=== PATIENT | male | born 1975 | race Caucasian/White ===

== ENCOUNTER 2018-12-23 07:54 | Emergency (ER) | payer BC ==
--- OUTSIDE RECORDS SUMMARY | 2018-12-23 08:00 | XMS REPORT ---
:1975 Author Organization [facility] Address [address] [place] [address] Dr. Brown [address] [place] [address] Care Team Providers Name Role Phone Unavailable Unavailable Unavailable Problems This patient has no known problems. Allergies, Adverse Reactions, Alerts This patient has no known allergies or adverse reactions. Medications This patient has no known medications.
--- OUTSIDE RECORDS SUMMARY | 2018-12-23 08:01 | XMS REPORT | Summary of Care ---
:1975 Author Organization [facility] - [facility] Address [address] [place] [address] Care Team Providers Name Role Phone Pcp, Patient Does Not Have A Primary Care Provider Encounter Details Date Type Department Care Team Description 12/22/2018 Orders Only [facility] Doctor Unassigned, No [address] [facility] [place] [address] [address] [place] [address] Allergies No Known Allergiesdocumented as of this encounter (statuses as of 12/22/2018) Medications Medication Sig Dispensed Refills Start Date End Date Status ketorolac 10 mg Take 1 tablet by 20 tablet 0 12/02/2018 Active tabletIndications: mouth every 6 Acute left flank pain (six) hours as needed for Pain (scale 4-6). documented as of this encounter (statuses as of 12/22/2018) Active Problems No known active problemsdocumented as of this encounter (statuses as of 2018) Social History Tobacco Use Types Packs/Day Years Used Date Never Assessed Sex Assigned at Date Recorded Not on file Job Start Date Occupation Industry Not on file Not on file Not on file Travel History Travel Start Travel End No recent travel history available. documented as of this encounter Last Filed Vital Signs Not on filedocumented in this encounter Plan of Treatment Health Maintenance Due Date Last Done Comments DTaP,Tdap,and Td Vaccines (1 - 1996 Tdap) INFLUENZA VACCINE (#1) 2018 PNEUMOCOCCAL 0-64 YEARS COMBINED Aged Out No longer eligible based on SERIES patient's age to complete this topic documented as of this encounter Procedures Procedure Name Priority Date/Time Associated Diagnosis Comments CONSENT/REFUSAL FOR Routine 12/22/2018 2:52 PM CDT DIAGNOSIS AND TREATMENT documented in this encounter Results Not on filedocumented in this encounter Insurance Payer Benefit Plan Subscriber ID Effective Dates Phone Address Type / Group [employer] [place] [id number] 2018-Norma [phone] [address] PPO/POS [place] - OUT OF t 7 [id number] [place] [address] documented as of this encounter
--- OUTSIDE RECORDS SUMMARY | 2018-12-23 08:01 | XMS REPORT | Summary of Care ---
:1975 Author Organization [facility] - [facility] Address [address] [place] [address] Care Team Providers Name Role Phone Pcp, Patient Does Not Have A Primary Care Provider Reason for Visit Reason Comments Back Pain Auth/Cert Status Reason Specialty Diagnoses / Referred By Referred To Procedures Contact Contact Emergency Medicine Diagnoses BACK PAIN [facility] [address] [place] [address] [place] [address] Encounter Details Date Type Department Care Team Description 12/22/2018 Emergency [facility] Marilynn Jang PAC Acute left-sided thoracic back pain (Primary Dx); Department [address] [address] DR Amanda zapata [address] [place] [address] [place] [address] [place], [place] [id number] Allergies No Known Allergiesdocumented as of this encounter (statuses as of 12/22/2018) Medications Medication Sig Dispensed Refills Start Date End Date Status ketorolac 10 mg Take 1 tablet 20 tablet 0 12/02/2018 Active tabletIndications: Acute by mouth every left flank pain 6 (six) hours as needed for Pain (scale 4-6). cyclobenzaprine 10 mg Take 1 tablet 20 tablet 0 12/22/2018 Active tabletIndications: Acute by mouth 3 left-sided thoracic back (three) times pain daily. acetaminophen-codeine Take 1 tablet 12 tablet 0 12/22/2018 Active 300-30 mg by mouth every tabletIndications: Acute 4 (four) hours left-sided thoracic back as needed for pain Pain (scale 4-6). documented as of this [...] of this encounter Last Filed Vital Signs Vital Sign Reading Time Taken Comments Blood Pressure 147/97 12/22/2018 3:10 PM CDT Pulse 98 12/22/2018 3:10 PM CDT Temperature 37.2 C (99 F) 12/22/2018 3:10 PM CDT Respiratory Rate 18 12/22/2018 3:10 PM CDT Oxygen Saturation 97% 12/22/2018 3:10 PM CDT Inhaled Oxygen Concentration - - Weight 99.8 kg (220 lb) 12/22/2018 3:10 PM CDT Height - - Body Mass Index 35.51 12/02/2018 10:23 PM CDT documented in this encounter Discharge Instructions Marilynn Shi, PAC - 12/22/2018Avoid strenuous activities and follow up with PCP for further treatment. Return to the ER if pain worsens and is not controlled with meds. or if you develop numbness to your groin, difficulty picking your foot up when walking or have difficulty controlling your bowels or bladder function. Apply heat to your back, and do stretching exercises to prevent stiffness to your back muscles. Follow up with your PCP or an orthopedist if you feel like you are not improving with the treatment plan and/or medications recommended. Follow up with a bench press operator for further evaluation of your elevated creatinine level. AttachmentsThe following attachments cannot be sent through Care Everywhere.Back Pain, Relieving (Greek)documented in this encounter Plan of Treatment Health Maintenance Due Date Last Done Comments DTaP,Tdap,and Td Vaccines ( - 1996 Tdap) INFLUENZA VACCINE (#1) 2018 PNEUMOCOCCAL 0-64 YEARS COMBINED Aged Out No longer eligible based on SERIES patient's age to complete this topic documented as of this encounter Procedures Procedure Name Priority Date/Time Associated Comments Diagnosis URINALYSIS STAT 12/22/2018 6:18 Acute left-sided Results for this PM CDT thoracic back pain procedure are in the results section. CBC WITH DIFFERENTIAL STAT 12/22/2018 6:16 Acute left-sided Results for this PM CDT thoracic back pain procedure are in the results section. CBC WITH DIFF STAT 12/22/2018 6:16 Acute left-sided Results for this PM CDT thoracic back pain procedure are in the results section. COMP. METABOLIC PANEL STAT 12/22/2018 6:16 Acute left-sided Results for this (96857) PM CDT thoracic back pain procedure are in the results section. NOTICE OF PRIVACY Routine 12/22/2018 2:52 PRACTICES PM CDT documented in this encounter Results URINALYSIS (12/22/2018 6:18 PM CDT) APPEARANCE Clear Clear [facility] COLOR Yellow Yellow [facility] PH 5.0 4.8 - 8.0 [facility] SP GRAVITY 1.017 1.003 - 1.030 [facility] GLU U QUAL Normal Normal [facility] BLOOD 2+ (A) Negative [facility] KETONES Negative Negative [facility] PROTEIN Negative Negative [facility] UROBILIN Normal Normal [facility] BILIRUBIN Negative Negative [facility] NITRITE Negative Negative [facility] LEUK DIETER Negative Negative [facility] RBC/HPF 5 (H) 0 - 3 HPF [facility] WBC/HPF 2 0 - 5 HPF [facility] BACTERIA Negative Negative [facility] MUCOUS Slight (A) Negative LPF [facility] SQ EPITH <1 HPF [facility] Specimen Urine - URINE, CLEAN CATCH Performing Organization Address City/State/Zipcode Phone Number [facility] CLIA: [id number], [address] [place] [address] CBC WITH DIFFERENTIAL (12/22/2018 6:16 PM CDT) WBC 8.41 4.20 - 10.70 [facility] 10*3/L [facility] RBC 4.72 4.26 - 5.52 [facility] 10*6/L [facility] HGB 13.6 12.2 - 16.4 g/dL [facility] HCT 42.1 38.4 - 49.3 % [facility] MCV 89.2 81.7 - 95.6 fL [facility] MCH 28.8 26.1 - 32.7 pg [facility] MCHC 32.3 31.2 - 35.0 g/dL [facility] RDW-SD 41.4 38.5 - 51.6 fL [facility] RDW-CV 12.6 12.1 - 15.4 % [facility] PLT 247 150 - 328 [facility] 10*3/L [facility] MPV 10.6 9.8 - 13.0 fL [facility] NRBC/100 WBC 0.0 0.0 - 10.0 /100 [facility] WBCs [facility] NRBC x10^3 <0.01 10*3/L [facility] GRAN MAT (NEUT) % 78.3 % [facility] IMM GRAN % 0.40 % [facility] LYMPH % 14.5 % [facility] MONO % 5.0 % [facility] EOS % 1.3 % [facility] BASO % 0.5 % [facility] GRAN MAT x10^3(ANC) 6.59 1.99 - 6.95 [facility] 10*3/uL [facility] IMM GRAN x10^3 0.03 0.00 - 0.06 [facility] 10*3/uL HOSPITAL LABORATORY LYMPH x10^3 1.22 1.09 - 3.23 [facility] 10*3/uL HOSPITAL LABORATORY MONO x10^3 0.42 0.36 - 1.02 [facility] 10*3/uL HOSPITAL LABORATORY EOS x10^3 0.11 0.06 - 0.53 [facility] 10*3/uL HOSPITAL LAB[facility]ATORY BASO x10^3 0.04 0.01 - 0.09 [facility] 10*3/uL [facility] Specimen Blood - VENOUS Performing Organization Address City/State/Zipcode Phone Number [facility] CLIA: [id number], [address] [place] [address] COMP. METABOLIC PANEL ([id number]) (12/22/2018 6:16 PM CDT) NA 142 135 - 145 [facility] mmol/L [facility] K 4.0 3.5 - 5.0 [facility] mmol/L [facility] CL 103 98 - 108 mmol/L [facility] CO2 TOTAL 27 23 - 31 mmol/L [facility] AGAP 12 2 - 16 [facility] BUN 14 7 - 23 mg/dL [facility] GLUCOSE 153 (H) 70 - 110 mg/dL [facility] CREATININE 1.33 (H) 0.60 - 1.25 [facility] mg/dL [facility] TOTAL BILI 0.5 0.1 - 1.1 mg/dL [facility] CALCIUM 9.3 8.6 - 10.6 [facility] mg/dL [facility] T PROTEIN 8.1 6.3 - 8.2 g/dL [facility] ALBUMIN 4.5 3.5 - 5.0 g/dL [facility] ALK PHOS 84 34 - 122 U/L [facility] ALT(SGPT) 21 9 - 51 U/L [facility] AST(SGOT) 22 13 - 40 U/L [facility] eGFR Calculation 59.3 mL/min/1.73m2 [facility] (Non-[facility] LABORATORY Portuguese) eGFR Calculation 71.8 mL/min/1.73m2 [facility] () [facility] Specimen Blood - VENOUS Narrative Performed At Association of Glomerular Filtration Rate (GFR) [facility] and Staging of Kidney Disease* + + +- + | GFR (mL/min/1.73 m2)| With Kidney Damage|Without Kidney Damage + + +- + |>90| Stage one| Normal + + +- + |60-89|S tage two| Decreased GFR + + +- + |30-59|S tage three| Stage three + + +- + |15-29|S tage four | Stage four + + +- + |<15 (or dialysis)|Stage five | Stage five + + +- + *Each stage assumes the associated GFR level has been in effect for at least three months.Stages 1 to 5, with or without kidney disease, indicate chronic kidney disease. Notes: Determination of stages one and two (with eGFR >59mL/min/1.73 m2) requires estimation of kidney damage for at least three months as defined by structural or functional abnormalities of the kidney, manifested by either: Pathological abnormalities or Markers of kidney damage (including abnormalities in the composition of the blood or urine or abnormalities in imaging tests). Performing Organization Address City/State/Zipcode Phone Number [facility] CLIA: [id number], [address] [place] [address] documented in this encounter Visit Diagnoses Diagnosis Acute left-sided thoracic back pain - Primary Creatinine elevation Other nonspecific findings on examination of blood documented in this encounter Administered Medications Medication Order MAR Action Action Date Dose Rate Site cyclobenzaprine (FLEXERIL) tablet Given 12/22/2018 7:34 PM CDT 10 mg 10 mg 10 mg, Oral, ONCE, 1 dose, Sat12/22/18 at 2044, Routine HYDROcodone-acetaminophen (NORCO 5) 5-325 Given 12/22/2018 7:33 PM CDT 1 tablet mg tablet 1 tablet 1 tablet, Oral, ONCE, 1 dose, Sat12/22/18 at 2044, SRIRAM documented in this encounter Insurance Payer Benefit Plan Subscriber ID Effective Dates Phone Address Type / Group [facility] [id number] 2018-Norma [phone] [address] PPO/POS [place] - OUT OF t 7 [id number] [place] [address] documented as of this encounter"
--- OUTSIDE RECORDS SUMMARY | 2018-12-23 08:01 | XMS REPORT | Summary of Care ---
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 [address] [address] MRI/CAT Scan (STAT) Status Reason Specialty Diagnoses / Referred By Referred To Procedures Contact Contact New Request Diagnostic Diagnoses Acute left flank pain Shaneka Bradley Radiology Procedures CT ABDOMEN PELVIS WO CONTRAST G, WELDING 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 [address] [address] Reason for Visit Reason Comments Back Pain Auth/Cert Status Reason Specialty Diagnoses / Referred By Referred To Procedures Contact Contact Emergency Medicine Diagnoses BACK PAIN [facility] [address] [place] [address] Encounter Details Date Type Department Care Team Description 12/02/2018 - Emergency [facility]Emergency Cornelio Lopez MD [address] [address] Acute left flank pain (Primary Dx); 12/03/2018 Department Shaneka Bradley G, WELDING 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 [address] [address] [phone] Flank pain 132 [facility] [place] [address] Allergies No Known Allergiesdocumented as of this encounter (statuses as of 12/03/2018) Medications Medication Sig Dispensed Refills Start Date End Date Status ketorolac 10 mg Take 1 tablet by 20 tablet 0 12/02/2018 Active tabletIndications: mouth every 6 Acute left flank pain (six) hours as needed for Pain (scale 4-6). methocarbamol 750 mg Take 2 tablets 24 tablet 0 12/02/2018 12/05/2018 Active tabletIndications: by mouth 4 Acute left flank pain (four) times daily for 3 days. documented as of this encounter (statuses as of 12/03/2018) Active Problems No known active problemsdocumented as [...] Sign Reading Time Taken Comments Blood Pressure 142/88 12/03/2018 1:30 AM CDT Pulse 92 12/03/2018 1:30 AM CDT Temperature 36.8 C (98.2 F) 12/02/2018 10:23 PM CDT Respiratory Rate 18 12/03/2018 1:30 AM CDT Oxygen Saturation 99% 12/03/2018 1:30 AM CDT Inhaled Oxygen Concentration - - Weight 99.8 kg (220 lb) 12/02/2018 10:23 PM CDT Height 167.6 cm (5' 6") 12/02/2018 10:23 PM CDT Body Mass Index 35.51 12/02/2018 10:23 PM CDT documented in this encounter Discharge Instructions Shaneka Vines NP - 12/02/2018Diagnosis: Flank pain unable to determine cause Prescriptions for Toradol and Robaxin Follow up in the clinic, return if worse documented in this encounter Plan of Treatment Health Maintenance Due Date Last Done Comments DTaP,Tdap,and Td Vaccines (1 - 1996 Tdap) INFLUENZA VACCINE (#1) 2018 PNEUMOCOCCAL 0-64 YEARS COMBINED Aged Out No longer eligible based on SERIES patient's age to complete this topic documented as of this encounter Procedures Procedure Name Priority Date/Time Associated Comments Diagnosis CT ABDOMEN PELVIS WO STAT 12/03/2018 12:48 AM Acute left flank Results for this CONTRAST CDT pain procedure are in the results section. URINALYSIS STAT 12/02/2018 10:32 PM Flank pain Results for this CDT procedure are in the results section. documented in this encounter Results CT ABDOMEN PELVIS WO CONTRAST (12/03/2018 12:48 AM CDT) Specimen Impressions Performed At PACS/VR/DOSE No acute inflammatory process in the abdomen or pelvis. No hydronephrosis No urinary tract stones Normal appendix RL: [id number] ABDOMEN AND PELVIS WITHOUT IV CONTRAST PACS/VR/DOSE ORDERING PHYSICIAN: SHANEKA BRADLEY HISTORY: Acute abdominal pain, flank pain TECHNIQUE: Multiple axial CT images of the abdomen and pelvis were obtained without IV or PO contrast. CT scan performed according to ALARA (As low as reasonably achievable) principles. COMPARISON: None available. FINDINGS: Lower lungs are clear. There are no effusions. Heart size normal. Liver, gallbladder, pancreas, spleen, adrenals, and kidneys are unremarkable. No urinary tract stones. No hydronephrosis. No free fluid. Appendix normal. Bones are normal. Procedure Note [facility], Radiant Results Inft User - 12/03/2018 12:[address] ABDOMEN AND PELVIS WITHOUT IV CONTRAST ORDERING PHYSICIAN: SHANEKA BRADLEY HISTORY: Acute abdominal pain, flank pain TECHNIQUE: Multiple axial CT images of the abdomen and pelvis were obtained without IV or PO contrast. CT scan performed according to ALARA (As low as reasonably achievable) principles. COMPARISON: None available. FINDINGS: Lower lungs are clear. There are no effusions. Heart size normal. Liver, gallbladder, pancreas, spleen, adrenals, and kidneys are unremarkable. No urinary tract stones. No hydronephrosis. No free fluid. Appendix normal. Bones are normal. IMPRESSION No acute inflammatory process in the abdomen or pelvis. No hydronephrosis No urinary tract stones Normal appendix RL: [id number] Performing Organization Address City/State/Zipcode Phone Number [facility] URINALYSIS (12/02/2018 10:32 PM CDT) APPEARANCE Clear Clear [facility] COLOR Yellow Yellow [facility] PH 6.0 4.8 - 8.0 [facility] SP GRAVITY 1.025 1.003 - 1.030 [facility] GLU U QUAL Negative Negative [facility] BLOOD Moderate (A) Negative [facility] KETONES Negative Negative [facility] PROTEIN Negative Negative [facility] UROBILIN 0.2 mg/dL 0-1.0 mg/dL [facility] BILIRUBIN Negative Negative [facility] NITRITE Negative Negative [facility] LEUK DIETER Negative Negative [facility] RBC/HPF 3 0 - 3 HPF [facility] WBC/HPF 1 0 - 5 HPF [facility] BACTERIA Few (A) Negative [facility] MUCOUS Slight (A) Negative LPF [facility] Specimen Urine - URINE, CLEAN CATCH Performing Organization Address City/State/[facility] Cent[facility] Phone Number [facility] CLIA: [id number], [address] [place] [address] documented in this encounter Visit Diagnoses Diagnosis Acute left flank pain - Primary Abdominal pain, unspecified site Flank pain Abdominal pain, unspecified site documented in this encounter Administered Medications Medication Order MAR Action Action Date Dose Rate Site HYDROcodone-acetaminophen Given 12/03/2018 1:19 AM CDT 2 tablets (NORCO 5) 5-325 mg tablet 2 tablet 2 tablet, Oral, ONCE, 1 dose, Sat12/03/18 at 0100, SRIRAM ketorolac (TORADOL) injection Given 12/03/2018 12:49 AM CDT 30 mg Right Deltoid-IM 30 mg 30 mg, Intramuscular, ONCE, 1 dose, Sat12/03/18 at 0045, SRIRAM, anthropology faculty member approving Restricted medication: SHANEKA BRADLEY methocarbamol (ROBAXIN) tablet 1,500 mg Given 12/03/2018 12:50 AM CDT 1,500 mg 1,500 mg, Oral, ONCE, 1 dose, Sat12/03/18 at 0045, Routine documented in this encounter Insurance Payer Benefit Plan Subscriber ID Effective Dates Phone Address Type / Group [facility] [id number] 2018-Norma [phone] [address] PPO/POS [place] - OUT OF t 7 [id number] [place] [address] documented as of this encounter
[2018-12-23] MEDS ORDERED: DIAZEPAM 5 MG TABLET ONE (08:59)
[2018-12-23] MEDS ORDERED: ONDANSETRON 4 MG/2 ML VIAL ONE (09:00)
[2018-12-23] MEDS ORDERED: NA CHLORIDE 0.9% 1,000 ML ONE (09:00)
[2018-12-23] MEDS ORDERED: MORPHINE 4 MG/ML SYR ONE (09:00)
[2018-12-23 09:27] LABS: Absolute Lymphocytes (CBC) 1.8 K/uL (0.7-4.9); Hematocrit 40.2 % (39.6-49.0); Lymphocytes % 23.4 % (15.3-44.8); MPV 9.2 fL (7.6-11.3); RBC Red Blood Cell Count 4.59 M/uL (4.33-5.43)
[2018-12-23 09:46] LABS: ALT/SGPT 26 U/L (12-78); AST/SGOT 13 U/L (15-37); Albumin 3.6 g/dL (3.4-5.0); Alkaline Phosphatase 78 U/L (45-117); BUN Blood Urea Nitrogen 12 mg/dL (7-18); Bicarbonate 27 mmol/L (21-32); Bilirubin Total 0.5 mg/dL (0.2-1.0); CKMB Creatine Kinase MB < 1.0 ng/mL (0.3-3.6); Creatine Phosphokinase 71 U/L (39-308); Glucose Level 97 mg/dL (74-106); Lipase 115 U/L (73-393); Potassium 4.3 mmol/L (3.5-5.1); Protein, Total 7.9 g/dL (6.4-8.2); Sodium Level 140 mmol/L (136-145); Troponin (Emerg Dept Use Only) < 0.02 ng/mL (0.0-0.045); Uric Acid 10.1 mg/dL (3.5-7.2)
--- NOTE | 2018-12-23 10:28 | RAD REPORT ---
EXAM DESCRIPTION: Dalia Montaño (2 Views)12/23/2018 10:10 am CLINICAL HISTORY: Chest pain COMPARISON: 2012 FINDINGS: The lungs appear clear of acute infiltrate. The heart is normal size IMPRESSION: No acute abnormalities displayed
--- NOTE | 2018-12-23 10:37 | RAD REPORT ---
EXAM DESCRIPTION: CT - Angio Aorta For Dissection - 12/23/2018 10:20 am CLINICAL HISTORY: . Chest and abd pain COMPARISON: 2017 CT abdomen TECHNIQUE: Computed tomography angiography of the chest, abdomen pelvis were obtained. 100 cc Isovue 370 was administered intravenously. Coronal and sagittal reconstruction were performed. MIP 3D reconstruction was performed All CT scans are performed using dose optimization technique as appropriate and may include automated exposure control or mA/KV adjustment according to patient size. FINDINGS: An aortic dissection is not seen. An aortic aneurysm is not displayed. The celiac, SMA and GEOVANNY are patent . A lung consolidation is not present. A pericardial effusion is not seen. A pleural effusion is not n oted. The liver,spleen, pancreas adrenals kidneys demonstrate no significant abnormality. No evidence of diverticulitis. Small to moderate right inguinal hernia contains fat Small umbilical hernia IMPRESSION: Negative for an aortic dissection.
--- NOTE | 2018-12-23 10:56 | ER ---
Nurse's Notes [facility] Name: Francis Rico Jr Age: 43 yrs Sex: Male : 1975 Arrival Date: 12/23/2018 Time: 07:57 Bed 8 Private MD: Diagnosis: Strain of muscle and tendon of back wall of thorax;Strain of muscle and tendon of front wall of thorax;Hematuria Presentation: 12/23 08:10 Presenting complaint: Patient states: left subscapular pain that radiates to left side jl7 of chest x 1 month, worsening the past few days. Went to [place] a week ago and they did a CT, went again last night and had blood work and urine done, they discharged with Tylenol 3 and Flexeril. Transition of care: patient was not received from another setting of care. Onset of symptoms was November 23, 2018. Risk Assessment: Do you want to hurt yourself or someone else? Patient reports no desire to harm self or others. Initial Sepsis Screen: Does the patient meet any 2 criteria? No. Patient's initial sepsis screen is negative. Does the patient have a suspected source of infection? No. Patient's initial sepsis screen is negative. Care prior to arrival: None. 08:10 Method Of Arrival: Ambulatory jl7 08:10 Acuity: VINH 3 jl7 Triage Assessment: 08:14 General: Appears in no apparent distress. uncomfortable, Behavior is calm, cooperative, jl7 appropriate for age. Pain: Complains of pain in left subscapular area Pain radiates to left breast Pain currently is 10 out of 10 on a pain scale. Quality of pain is described as sharp, Pain began 1 month ago Is continuous, Alleviated by sitting straight up Aggravated by taking a deep breath in and laying down Noted to be guarding, resistant to movement, Also complains of sleeplessness, Current management is with Tylenol 3 and Flexeril is ineffective. EENT: No signs and/or symptoms were reported regarding the EENT system. Neuro: Level of Consciousness is awake, alert, obeys commands, Oriented to person, place, time, situation. Cardiovascular: Patient's skin is warm and dry. Respiratory: Airway is patent Respiratory effort is even, unlabored, Respiratory pattern is regular, symmetrical. GI: No signs and/or symptoms were reported involving the gastrointestinal system. : No signs and/or symptoms were reported regarding the genitourinary system. Derm: Skin is pink, warm \T\ dry. Musculoskeletal: pt resistant to movement due to pain. Historical: - Allergies: 08:14 No Known Allergies; jl7 - Home Meds: 08:14 none- use to take Allopurinol but has not for the past year [Active]; jl7 - PMHx: 08:14 Gout; jl7 - PSHx: 08:14 Appendectomy; jl7 - Immunization history:: Adult Immunizations unknown. - Social history:: Smoking status: Patient/guardian denies using tobacco. - Ebola Screening: : No symptoms or risks identified at this time. - Family history:: not pertinent. Screenin:15 Abuse screen: Denies threats or abuse. Denies injuries from another. Nutritional jl7 screening: No deficits noted. Tuberculosis screening: No symptoms or risk factors identified. Fall Risk IV access (20 points). Total Quesada Fall Scale indicates No Risk (0-24 pts). Assessment: 08:15 General: See triage assessment. 7 09:43 Reassessment: Pt reports minor decrease in pain, rated 7/10 Patient states symptoms jl7 have improved. 11:15 Reassessment: Dr. Shelton at bedside discussing plan of care. jl7 Vital Signs: 08:14 BP 158 / 95; Pulse 84; Resp 15 S; Temp 98.5(O); Pulse Ox 100% on R/A; Weight 102.06 kg jl7 (R); Height 5 ft. 5 in. (165.10 cm) (R); Pain 10/10; 09:15 BP 150 / 95; Pulse 84; Resp 16 S; Pulse Ox 100% on R/A; Pain 10/10; jl7 09:44 BP 137 / 95; Pulse 78; Resp 16 S; Pulse Ox 100% on R/A; Pain 7/10; jl7 10:32 BP 144 / 86; Pulse 85; Resp 14 S; Pulse Ox 100% on R/A; jl7 08:14 Body Mass Index 37.44 (102.06 kg, 165.10 cm) jl7 ED Course: 07:57 Patient arrived in ED. as 07:59 Andreina Vaughan RN is Primary Nurse. jl7 08:05 Jean Shelton MD is Attending Physician. [facility] 08:13 Triage completed. jl7 08:14 Arm band placed on right wrist. jl7 09:15 Patient has correct armband on for positive identification. Placed in gown. Bed in low jl7 position. Call light in reach. Side rails up X 1. transfer and pumphouse operator on. Pulse ox on. NIBP on. 09:15 Initial lab(s) drawn, by me, sent to lab. Urine collected: clean catch specimen, clear. jl7 Inserted saline lock: 22 gauge in left antecubital area, using aseptic technique. Blood collected. 09:31 Radiology exam delayed due to lab results not completed at this time. (BUN/Creatinine). mw3 09:56 Patient moved to radiology via wheelchair. jb2 10:12 Chest Pa And Lat (2 Views) XRAY In Process Unspecified. EDMS 10:23 CT Aorta for Dissection In Process Unspecified. EDMS 10:55 Jorge Bhakta MD is Referral Physician. mehdi 11:22 No provider procedures requiring assistance completed. IV discontinued, intact, jl7 bleeding controlled, No redness/swelling at site. Pressure dressing applied. Administered Medications: 09:15 Drug: Zofran 4 mg Route: IVP; Site: left antecubital; jl7 09:44 Follow up: Response: No adverse reaction jl7 09:15 Drug: Valium 5 mg Route: PO; jl7 09:44 Follow up: Response: No adverse reaction; Pain is decreased jl7 09:15 Drug: NS 0.9% 1000 ml Route: IV; Rate: 1 bolus; Site: left antecubital; jl7 10:30 Follow up: IV Status: Completed infusion; IV Intake: 1000ml jl7 09:18 Drug: morphine 4 mg Route: IVP; Site: left antecubital; jl7 09:43 Follow up: Response: No adverse reaction; Pain is decreased jl7 11:15 Drug: TORadol 30 mg Route: IVP; Site: left antecubital; jl7 11:21 Follow up: Response: Medication administered at discharge. jl7 11:17 Drug: Decadron - Dexamethasone 10 mg Route: IVP; Site: left antecubital; jl7 11:21 Follow up: Response: Medication administered at discharge. jl7 Intake: 10:30 IV: 1000ml; Total: 1000ml. jl7 Outcome: 10:55 Discharge ordered by . mehdi 11:22 Discharged to home ambulatory. jl7 11:22 Condition: stable 11:22 Discharge instructions given to patient, family, Instructed on discharge instructions, follow up and referral plans. medication usage, Demonstrated understanding of instructions, follow-up care, medications, Prescriptions given X 4. 11:22 Patient left the ED. jl7 Signatures: Dispatcher [employer] EDMS Jean Shelton MD MD cha Buechter, Jesse jb2 Martinez, Amelia as Leal, Jahala, RN RN jl7 Padmini Monk 3
--- NOTE | 2018-12-23 10:56 | EDPHYS ---
Physician Documentation [facility] Name: Francis Rico Jr Age: 43 yrs Sex: Male : 1975 Arrival Date: 12/23/2018 Time: 07:57 Bed 8 Private MD: ED Physician Jean Shelton HPI: 12/23 08:51 This 43 yrs old Male presents to ER via Ambulatory with complaints of Back mehdi Pain, Rib Pain. 08:51 The patient presents with pain that is acute, with no known mechanism of injury. The mehdi symptoms are located in the low back, left scapular area, left subscapular area, left low back and left mid back. Onset: The symptoms/episode began/occurred 20 day(s) ago. The pain does not radiate. Associated signs and symptoms: The patient has no apparent associated signs or symptoms. Severity of symptoms: At their worst the symptoms were moderate, in the emergency department the symptoms are unchanged. The patient has not experienced similar symptoms in the past. Historical: - Allergies: 08:14 No Known Allergies; jl7 - Home Meds: 08:14 none- use to take Allopurinol but has not for the past year [Active]; jl7 - PMHx: 08:14 Gout; jl7 - PSHx: 08:14 Appendectomy; jl7 - Immunization history:: Adult Immunizations unknown. - Social history:: Smoking status: Patient/guardian denies using tobacco. - Ebola Screening: : No symptoms or risks identified at this time. - Family history:: not pertinent. ROS: 08:51 Constitutional: Negative for fever, chills, and weight loss, Eyes: Negative for injury, mehdi pain, redness, and discharge, ENT: Negative for injury, pain, and discharge, Neck: Negative for injury, pain, and swelling, Cardiovascular: Negative for chest pain, palpitations, and edema, Abdomen/GI: Negative for abdominal pain, nausea, vomiting, diarrhea, and constipation, : Negative for injury, bleeding, discharge, and swelling, MS/Extremity: Negative for injury and deformity, Skin: Negative for injury, rash, and discoloration, Neuro: Negative for headache, weakness, numbness, tingling, and seizure, Psych: Negative for depression, anxiety, suicide ideation, homicidal ideation, and hallucinations, Allergy/Immunology: Negative for hives, rash, and allergies, Endocrine: Negative for neck swelling, polydipsia, polyuria, polyphagia, and marked weight changes, Hematologic/Lymphatic: Negative for swollen nodes, abnormal bleeding, and unusual bruising. 08:51 Respiratory: Positive for pleurisy, shortness of breath. 08:51 Abdomen/GI: Positive for abdominal pain, of the anterior aspect of left lateral abdomen and posterior aspect of left lateral abdomen. 08:51 Back: Positive for decreased range of motion, pain at rest. Exam: 08:51 Constitutional: This is a well developed, well nourished patient who is awake, alert, emhdi and in no acute distress. Head/Face: Normocephalic, atraumatic. Eyes: Pupils equal round and reactive to light, extra-ocular motions intact. Lids and lashes normal. Conjunctiva and sclera are non-icteric and not injected. Cornea within normal limits. Periorbital areas with no swelling, redness, or edema. ENT: Nares patent. No nasal discharge, no septal abnormalities noted. Tympanic membranes are normal and external auditory canals are clear. Oropharynx with no redness, swelling, or masses, exudates, or evidence of obstruction, uvula midline. Mucous membranes moist. Neck: Trachea midline, no thyromegaly or masses palpated, and no cervical lymphadenopathy. Supple, full range of motion without nuchal rigidity, or vertebral point tenderness. No Meningismus. Chest/axilla: Normal chest wall appearance and motion. Nontender with no deformity. No lesions are appreciated. Cardiovascular: Regular rate and rhythm with a normal S1 and S2. No gallops, murmurs, or rubs. Normal PMI, no JVD. No pulse deficits. Abdomen/GI: Soft, non-tender, with normal bowel sounds. No distension or tympany. No guarding or rebound. No evidence of tenderness throughout. Back: No spinal tenderness. No costovertebral tenderness. Full range of motion. Male : Normal genitalia with no discharge or lesions. Skin: Warm, dry with normal turgor. Normal color with no rashes, no lesions, and no evidence of cellulitis. MS/ Extremity: Pulses equal, no cyanosis. Neurovascular intact. Full, normal range of motion. Neuro: Awake and alert, GCS 15, oriented to person, place, time, and situation. Cranial nerves II-XII grossly intact. Motor strength 5/5 in all extremities. Sensory grossly intact. Cerebellar exam normal. Normal gait. Psych: Awake, alert, with orientation to person, place and time. Behavior, mood, and affect are within normal limits. 08:51 Respiratory: the patient does not display signs of respiratory distress, Respirations: normal, Breath sounds: are clear throughout. Vital Signs: 08:14 BP 158 / 95; Pulse 84; Resp 15 S; Temp 98.5(O); Pulse Ox 100% on R/A; Weight 102.06 kg jl7 (R); Height 5 ft. 5 in. (165.10 cm) (R); Pain 10/10; 09:15 BP 150 / 95; Pulse 84; Resp 16 S; Pulse Ox 100% on R/A; Pain 10/10; jl7 09:44 BP 137 / 95; Pulse 78; Resp 16 S; Pulse Ox 100% on R/A; Pain 7/10; jl7 10:32 BP 144 / 86; Pulse 85; Resp 14 S; Pulse Ox 100% on R/A; jl7 08:14 Body Mass Index 37.44 (102.06 kg, 165.10 cm) [facility] MDM: 08:05 Patient medically screened. [facility] 08:54 Data reviewed: vital signs, nurses notes, lab test result(s), EKG, radiologic studies, [facility] plain films. 12/23 08:51 Order name: CBC with Diff; Complete Time: 09:39 [facility] 12/23 08:51 Order name: Comprehensive Metabolic Panel; Complete Time: 10:27 [facility] 12/23 08:51 Order name: Lipase; Complete Time: 10:27 [facility] 12/23 08:51 Order name: Uric Acid; Complete Time: 10:27 [facility] 12/23 08:51 Order name: D-Dimer; Complete Time: 09:39 [facility] 12/23 08:51 Order name: Troponin (emerg Dept Use Only); Complete Time: 10:27 [facility] 12/23 08:51 Order name: Chest Pa And Lat (2 Views) XRAY; Complete Time: 10:53 [facility] 12/23 08:51 Order name: Ckmb; Complete Time: 10:27 [facility] 12/23 08:51 Order name: CK; Complete Time: 10:27 [facility] 12/23 08:55 Order name: CT Aorta for Dissection; Complete Time: 10:53 [facility] 12/23 09:24 Order name: Urine Dipstick--Ancillary (enter results) 12/23 08:51 Order name: Urine Dipstick-Ancillary (obtain specimen); Complete Time: 09:18 [facility] Administered Medications: 09:15 Drug: Zofran 4 mg Route: IVP; Site: left antecubital; jl7 09:44 Follow up: Response: No adverse reaction jl7 09:15 Drug: Valium 5 mg Route: PO; jl7 09:44 Follow up: Response: No adverse reaction; Pain is decreased jl7 09:15 Drug: NS 0.9% 1000 ml Route: IV; Rate: 1 bolus; Site: left antecubital; jl7 10:30 Follow up: IV Status: Completed infusion; IV Intake: 1000ml 7 :18 Drug: morphine 4 mg Route: IVP; Site: left antecubital; jl7 09:43 Follow up: Response: No adverse reaction; Pain is decreased jl7 11:15 Drug: TORadol 30 mg Route: IVP; Site: left antecubital; jl7 11:21 Follow up: Response: Medication administered at discharge. 7 11:17 Drug: Decadron - Dexamethasone 10 mg Route: IVP; Site: left antecubital; jl7 11:21 Follow up: Response: Medication administered at discharge. 7 Disposition: 12/23/18 10:55 Discharged to Home. Impression: Strain of muscle and tendon of back wall of thorax, Strain of muscle and tendon of front wall of thorax, Hematuria. - Condition is Stable. - Discharge Instructions: Back Pain, Adult, Hematuria, Adult, Back Pain, Adult, [id number]. - Prescriptions for Ibuprofen 600 mg Oral Tablet - take 1 tablet by ORAL route every 6 hours As needed take with food; 21 tablet. Tylenol- Codeine #3 300-30 mg Oral Tablet - take 2 tablet by ORAL route every 6 hours As needed; 30 tablet. Valium 5 mg Oral Tablet - take 1 tablet by ORAL route every 8 hours As needed; 20 tablet. Medrol (Gregorio) 4 mg Oral Tablets, Dose Pack - take 1 tablet by ORAL route as directed - follow package instructions; 1 packet. - Medication Reconciliation Form, Thank You Letter, Antibiotic Education, Prescription Opioid Use form. - Follow up: Private Physician; When: 2 - 3 days; Reason: Recheck today's complaints, Continuance of care, Re-evaluation by your physician. Follow up: Jorge Bhakta; When: 2 - 3 days; Reason: Recheck today's complaints, Re-evaluation by your physician. - Problem is new. - Symptoms have improved. Signatures: Dispatcher [employer] Jean Archer MD MD cha Leal, Jahala RN RN jl7 Corrections: (The following items were deleted from the chart) 11:22 10:55 12/23/2018 10:55 Discharged to Home. Impression: Strain of muscle and tendon of jl7 back wall of thorax; Strain of muscle and tendon of front wall of thorax; Hematuria. Condition is Stable. Discharge Instructions: Back Pain, Adult, Back Pain, Adult, [id number], Hematuria, Adult. Prescriptions for Ibuprofen 600 mg Oral Tablet - take 1 tablet by ORAL route every 6 hours As needed take with food; 21 tablet, Tylenol-Codeine #3 300-30 mg Oral Tablet - take 2 tablet by ORAL route every 6 hours As needed; 30 tablet, Valium 5 mg Oral Tablet - take 1 tablet by ORAL route every 8 hours As needed; 20 tablet, Medrol (Gregorio) 4 mg Oral Tablets, Dose Pack - take 1 tablet by ORAL route as directed - follow package instructions; 1 packet. and Forms are Medication Reconciliation Form, Thank You Letter, Antibiotic Education, Prescription Opioid Use. Follow up: Private Physician; When: 2 - 3 days; Reason: Recheck today's complaints, Continuance of care, Re-evaluation by your physician. Follow up: Jorge Bhakta; When: 2 - 3 days; Reason: Recheck today's complaints, Re-evaluation by your physician. Problem is new. Symptoms have improved. mehdi
[2018-12-23] MEDS ORDERED: dexAMETHasone 10 MG/ML VIAL ONE (11:13)
[2018-12-23] MEDS ORDERED: KETOROLAC 30 MG/ML INJ ONE (11:13)
[2018-12-23 11:53] VITALS: TEMP 98.5; O2SAT 100
[2018-12-23 11:57] VITALS: BP 144/86
[2018-12-23 12:01] LABS: Urine Blood 2+ (NEG); Urine Glucose NEGATIVE (NEG); Urine Protein NEGATIVE (NEG); Urine pH 5.5 (5.0-7.0)
== END 2018-12-23 11:22 | disposition home or self-care (01) ==
LOC: ER 07:54
DX: S29.012A Strain of muscle and tendon of back wall of thorax, initial encounter (principal); S29.011A Strain of muscle and tendon of front wall of thorax, initial encounter; R31.9 Hematuria, unspecified; X58.XXXA Exposure to other specified factors, initial encounter; Y93.9 Activity, unspecified; Y92.9 Unspecified place or not applicable
CPT/HCPCS: 96361; 85025; 36415; 82550; 85379; 84550; 81003; 84484; 82553; 83690; 80053; 71275; 74175; 71046; 96375; 96374; 99284; Q9967; J1100; J7030; J2405

== ENCOUNTER 2019-06-02 | Emergency (ER) | payer BC ==
--- NOTE | 2019-06-02 08:58 | EDPHYS ---
Physician Documentation [facility] Name: Francis Rico Jr Age: 43 yrs Sex: Male : 1975 Arrival Date: 06/02/2019 Time: 08:33 Bed 5 Private MD: ED Physician Weston Bustos HPI: 06/02 08:53 This 43 yrs old Male presents to ER via Unassigned with complaints of Ear kb Pain, Sore Throat. 08:53 The patient presents with drainage, a fullness, pain, moderate, swelling, tenderness. kb The complaints affect the left ear. Onset: The symptoms/episode began/occurred 4 day(s) ago. Modifying factors: The symptoms are alleviated by nothing, the symptoms are aggravated by pulling on ears, touching. Associated signs and symptoms: The patient has no apparent associated signs or symptoms. Severity of symptoms: At their worst the symptoms were moderate in the emergency department the symptoms are unchanged. The patient has not experienced similar symptoms in the past. The patient has not recently seen a physician. Pt reports he was using a Q-tip 4 or 5 days ago and felt a scab in his ear canal. States he removed the scab and it started bleeding. Since then has had progressing pain to left ear with drainage. . Historical: - Allergies: 09:11 No Known Allergies; jl7 - Home Meds: 09:11 None [Active]; jl7 - PMHx: 09:11 Gout; jl7 - PSHx: 09:11 Appendectomy; jl7 - Immunization history:: Adult Immunizations not up to date. - Coronavirus screen:: The patient has NOT traveled to [place] in the past 14 days. Proceed with normal triage process as indicated. - Social history:: Smoking status: Patient denies any tobacco usage or history of. - Ebola Screening: : No symptoms or risks identified at this time. ROS: 08:53 Constitutional: Negative for fever, chills, and weight loss, Neck: Negative for injury, kb pain, and swelling, Cardiovascular: Negative for chest pain, palpitations, and edema, Respiratory: Negative for shortness of breath, cough, wheezing, and pleuritic chest pain, Abdomen/GI: Negative for abdominal pain, nausea, vomiting, diarrhea, and constipation, MS/Extremity: Negative for injury and deformity, Skin: Negative for injury, rash, and discoloration, Neuro: Negative for headache, weakness, numbness, tingling, and seizure. 08:53 ENT: Positive for drainage from ear(s), ear pain. Exam: 08:53 Constitutional: This is a well developed, well nourished patient who is awake, alert, kb and in no acute distress. Head/Face: Normocephalic, atraumatic. Neck: Trachea midline, no thyromegaly or masses palpated, and no cervical lymphadenopathy. Supple, full range of motion without nuchal rigidity, or vertebral point tenderness. No Meningismus. Chest/axilla: Normal chest wall appearance and motion. Nontender with no deformity. No lesions are appreciated. Cardiovascular: Regular rate and rhythm with a normal S1 and S2. No gallops, murmurs, or rubs. Normal PMI, no JVD. No pulse deficits. Respiratory: Lungs have equal breath sounds bilaterally, clear to auscultation and percussion. No rales, rhonchi or wheezes noted. No increased work of breathing, no retractions or nasal flaring. Abdomen/GI: Soft, non-tender, with normal bowel sounds. No distension or tympany. No guarding or rebound. No evidence of tenderness throughout. Skin: Warm, dry with normal turgor. Normal color with no rashes, no lesions, and no evidence of cellulitis. MS/ Extremity: Pulses equal, no cyanosis. Neurovascular intact. Full, normal range of motion. Neuro: Awake and alert, GCS 15, oriented to person, place, time, and situation. Cranial nerves II-XII grossly intact. Motor strength 5/5 in all extremities. Sensory grossly intact. Cerebellar exam normal. Normal gait. 08:53 ENT: External ear(s): pain with movement, Ear canal(s): purulent discharge, that is minimal, in the left canal, swelling, that is moderate, of the left canal, TM's: not visable, swelling, Nose: is normal, Mouth: is normal, Posterior pharynx: is normal. Vital Signs: 09:11 BP 141 / 104; Pulse 93; Resp 17 S; Temp 97.4(O); Pulse Ox 99% on R/A; Weight 102.06 kg jl7 (R); Height 5 ft. 5 in. (165.10 cm) (R); Pain 8/10; 09:11 Body Mass Index 37.44 (102.06 kg, 165.10 cm) jl7 MDM: 08:41 Patient medically screened. kb 08:57 Data reviewed: vital signs, nurses notes. Data interpreted: Pulse oximetry: on room air kb is 100 %. Interpretation: normal. 08:57 Counseling: I had a detailed discussion with the patient and/or guardian regarding: the kb historical points, exam findings, and any diagnostic results supporting the discharge/admit diagnosis, the need for outpatient follow up, an ENT specialist, a family practitioner, to return to the emergency department if symptoms worsen or persist or if there are any questions or concerns that arise at home. Administered Medications: No medications were administered Disposition: 06/03 06:45 Co-signature as Attending Physician, Weston Bustos MD I agree with the assessment and kdr plan of care. Disposition: 06/02/19 08:57 Discharged to Home. Impression: Other otitis externa, left ear. - Condition is Stable. - Discharge Instructions: Otitis Externa, [id number], Ear Drops, Adult, [id number]. - Prescriptions for Ciprodex 0.3- 0.1 % Otic Drops, Suspension - instill 4 drop by OTIC route every 12 hours for 7 days , for ears ONLY; 1 Container. - Medication Reconciliation Form, Thank You Letter, Antibiotic Education, Prescription Opioid Use form. - Follow up: Emergency Department; When: As needed; Reason: Worsening of condition. Follow up: Private Physician; When: 2 - 3 days; Reason: Recheck today's complaints, Continuance of care, Re-evaluation by your physician. Signatures: Bernie Ga, INDUSTRIAL TECH INSTRUCTOR-C INDUSTRIAL TECH INSTRUCTOR-CkWeston Angulo MD MD kdr Andreina Vaughan RN RN jl7 Corrections: (The following items were deleted from the chart) 06/02 09:16 08:57 06/02/2019 08:57 Discharged to Home. Impression: Other otitis externa, left ear. jl7 Condition is Stable. Forms are Medication Reconciliation Form, Thank You Letter, Antibiotic Education, Prescription Opioid Use. Follow up: Emergency Department; When: As needed; Reason: Worsening of condition. Follow up: Private Physician; When: 2 - 3 days; Reason: Recheck today's complaints, Continuance of care, Re-evaluation by your physician. kb
--- NOTE | 2019-06-02 09:18 | ER ---
Nurse's Notes [facility] Name: Francis Rico Jr Age: 43 yrs Sex: Male : 1975 Arrival Date: 06/02/2019 Time: 08:33 Bed 5 Private MD: Diagnosis: Other otitis externa, left ear Presentation: 06/02 09:10 Presenting complaint: Patient states: Sore throat and left ear pain x 2-3 days. jl7 Transition of care: patient was not received from another setting of care. Onset of symptoms was May 31, 2019. Risk Assessment: Do you want to hurt yourself or someone else? Patient reports no desire to harm self or others. Initial Sepsis Screen: Does the patient meet any 2 criteria? No. Patient's initial sepsis screen is negative. Does the patient have a suspected source of infection? No. Patient's initial sepsis screen is negative. Care prior to arrival: None. 09:10 Method Of Arrival: Ambulatory [facility] emergency room 09:10 Acuity: VINH 4 jl7 Triage Assessment: 09:11 General: Appears in no apparent distress. uncomfortable, Behavior is calm, cooperative, jl7 appropriate for age. Pain: Complains of pain in left ear Pain currently is 8 out of 10 on a pain scale. EENT: Throat is reddened has enlarged tonsils bilaterally. Neuro: Level of Consciousness is awake, alert, obeys commands, Oriented to person, place, time, situation. Cardiovascular: Patient's skin is warm and dry. Respiratory: Airway is patent Respiratory effort is even, unlabored, Respiratory pattern is regular, symmetrical. Derm: Skin is pink, warm \T\ dry. Historical: - Allergies: 09:11 No Known Allergies; jl7 - Home Meds: 09:11 None [Active]; jl7 - PMHx: 09:11 Gout; jl7 - PSHx: 09:11 Appendectomy; jl7 - Immunization history:: Adult Immunizations not up to date. - Coronavirus screen:: The patient has NOT traveled to [place] in the past 14 days. Proceed with normal triage process as indicated. - Social history:: Smoking status: Patient denies any tobacco usage or history of. - Ebola Screening: : No symptoms or risks identified at this time. Screenin:14 Abuse screen: Denies threats or abuse. Denies injuries from another. Nutritional jl7 screening: No deficits noted. Tuberculosis screening: No symptoms or risk factors identified. Fall Risk None identified. Assessment: 09:14 General: See triage assessment. jl7 Vital Signs: 09:11 BP 141 / 104; Pulse 93; Resp 17 S; Temp 97.4(O); Pulse Ox 99% on R/A; Weight 102.06 kg jl7 (R); Height 5 ft. 5 in. (165.10 cm) (R); Pain 8/10; 09:11 Body Mass Index 37.44 (102.06 kg, 165.10 cm) jl7 ED Course: 08:33 Patient arrived in ED. mr 08:41 [facility]C [facility] kb 08:41 Weston Bustos MD is Attending Physician. kb 09:03 Andreina Vaughan, RN is Primary Nurse. jl7 09:11 Triage completed. jl7 09:11 Arm band placed on right wrist. jl7 09:14 Patient has correct armband on for positive identification. Bed in low position. Call jl7 light in reach. Side rails up X 1. Pulse ox on. NIBP on. 09:15 No provider procedures requiring assistance completed. Patient did not have IV access jl7 during this emergency room visit. Administered Medications: No medications were administered Outcome: 08:57 Discharge ordered by . kb 09:15 Discharged to home ambulatory, with family. jl7 09:15 Condition: stable 09:15 Discharge instructions given to patient, family, Instructed on discharge instructions, follow up and referral plans. medication usage, Demonstrated understanding of instructions, follow-up care, medications, Prescriptions given X 1. 09:16 Patient left the ED. jl7 Signatures: Bernie Ga FNP-C FNP-Benjamin Autumn Arthur mr Andreina Vaughan, RN RN jl7
== END 2019-06-02 09:16 | disposition home or self-care (01) ==
DX: H60.8X2 Other otitis externa, left ear (principal)
CPT/HCPCS: 99283

== ENCOUNTER 2021-06-23 01:34 | Emergency (ER) | payer BC ==
--- OUTSIDE RECORDS SUMMARY | 2021-06-23 01:37 | XMS REPORT | Continuity of Care Document ---
:1975 Author Organization [facility] t Address [address] [place] [address] Dr. Brown [address] [place] [id number] Care Team Providers Name Role Phone Unavailable Unavailable Unavailable Problems This patient has no known problems. Allergies, Adverse Reactions, Alerts This patient has no known allergies or adverse reactions. Medications This patient has no known medications. Procedures This patient has no known procedures. Results This patient has no known results.
[2021-06-23 02:18] LABS: Absolute Lymphocytes (CBC) 1.6 K/uL (0.7-4.9); Hematocrit 42.1 % (39.6-49.0); Lymphocytes % 26.7 % (15.3-44.8); RBC Red Blood Cell Count 4.86 M/uL (4.33-5.43)
[2021-06-23 02:35] LABS: Potassium 3.5 mmol/L (3.5-5.1)
--- NOTE | 2021-06-23 07:45 | EDPHYS ---
Physician Documentation [facility] Name: Francis Rico Jr Age: 45 yrs Sex: Male : 1975 Arrival Date: 06/23/2021 Time: 01:40 Bed 30 Private MD: ED Physician Jesus Joshi HPI: 06/23 05:59 This 45 yrs old Male presents to ER via Ambulatory with complaints of Chest Tightness, kdr Dizziness, Shortness Of Breath. 05:59 The patient or guardian reports chest pain that is located primarily in the anterior kdr chest wall, bilaterally. Onset: suddenly, today. The pain does not radiate. Associated signs and symptoms: Pertinent positives: dizziness, lightheadedness, nausea, palpitations, shortness of breath. The chest pain is described as aching, dull, a pressure. Duration: The patient or guardian reports a single episode, that is still ongoing, but improving. Modifying factors: The symptoms are alleviated by nothing. the symptoms are aggravated by palpation of area. Severity of pain: At its worst the pain was mild moderate just prior to arrival, in the emergency department the pain is unchanged. The patient has not experienced similar symptoms in the past. The patient was concerned that he may be having a anxiety or panic attack. Historical: - Allergies: 02:46 No Known Allergies; astrid - Home Meds: 02:44 terbutaline 2.5 mg Oral tab [Active]; astrid - PMHx: 02:43 Gout; astrid - Immunization history:: Client reports having NOT received the Covid vaccine. Flu vaccine is not up to date. Patient has never been vaccinated. - Social history:: Smoking status: Patient denies any tobacco usage or history of. ROS: 05:59 Constitutional: Negative for fever, chills, and weight loss, Eyes: Negative for injury, kdr pain, redness, and discharge, ENT: Negative for injury, pain, and discharge, Neck: Negative for injury, pain, and swelling, Abdomen/GI: Negative for abdominal pain, nausea, vomiting, diarrhea, and constipation, Back: Negative for injury and pain, : Negative for injury, bleeding, discharge, and swelling, MS/Extremity: Negative for injury and deformity, Skin: Negative for injury, rash, and discoloration, Neuro: Negative for headache, weakness, numbness, tingling, and seizure activity. Psych: Negative for depression, anxiety, suicide ideation, homicidal ideation, and hallucinations, Allergy/Immunology: Negative for hives, rash, and allergies, Endocrine: Negative for neck swelling, polydipsia, polyuria, polyphagia, and marked weight changes, Hematologic/Lymphatic: Negative for swollen nodes, abnormal bleeding, and unusual bruising. 05:59 Neuro: Positive for dizziness, tingling, Lightheaded. Exam: 05:59 Constitutional: This is a well developed, well nourished patient who is awake, alert, kdr and in no acute distress. Head/Face: Normocephalic, atraumatic. Eyes: Pupils equal round and reactive to light, extra-ocular motions intact. Lids and lashes normal. Conjunctiva and sclera are non-icteric and not injected. Cornea within normal limits. Periorbital areas with no swelling, redness, or edema. Neck: Trachea midline, no thyromegaly or masses palpated, and no cervical lymphadenopathy. Supple, full range of motion without nuchal rigidity, or vertebral point tenderness. No Meningismus. Chest/axilla: Normal chest wall appearance and motion. Nontender with no deformity. No lesions are appreciated. Cardiovascular: Regular rate and rhythm with a normal S1 and S2. No gallops, murmurs, or rubs. Normal PMI, no JVD. No pulse deficits. Respiratory: Lungs have equal breath sounds bilaterally, clear to auscultation and percussion. No rales, rhonchi or wheezes noted. No increased work of breathing, no retractions or nasal flaring. Abdomen/GI: Soft, non-tender, with normal bowel sounds. No distension or tympany. No guarding or rebound. No evidence of tenderness throughout. Back: No spinal tenderness. No costovertebral tenderness. Full range of motion. Skin: Warm, dry with normal turgor. Normal color with no rashes, no lesions, and no evidence of cellulitis. MS/ Extremity: Pulses equal, no cyanosis. Neurovascular intact. Full, normal range of motion. Neuro: Awake and alert, GCS 15, oriented to person, place, time, and situation. Cranial nerves II-XII grossly intact. Motor strength 5/5 in all extremities. Sensory grossly intact. Cerebellar exam normal. Normal gait. 05:59 ECG was reviewed by the Attending Physician. Vital Signs: 02:15 BP 140 / 93; Pulse 71; Resp 18; Pulse Ox 99% ; Pain 0/10; astrid 02:28 BP 147 / 98; Pulse 71; Resp 18; Temp 98.5; Pulse Ox 99% on R/A; Weight 97.52 kg; Height astrid 5 ft. 5 in. (165.10 cm); Pain 2/10; 02:44 BP 116 / 88; Pulse 64; Resp 18; Pulse Ox 98% on R/A; Pain 2/10; astrid 03:22 BP 119 / 87; Pulse 67; Resp 16; Pulse Ox 98% on R/A; Pain 0/10; astrid 04:35 BP 113 / 88; Pulse 66; Resp 16; Pulse Ox 98% on R/A; Pain 0/10; astrid 05:36 BP 129 / 92; Pulse 62; Resp 18; Pulse Ox 98% on R/A; Pain 0/10; astrid 06:27 BP 138 / 92; Pulse 64; Resp 18; Temp 98.5; Pulse Ox 100% on R/A; Pain 0/10; astrid 07:00 BP 140 / 97; Pulse 69; Resp 16 S; Pulse Ox 98% ; Pain 0/10; jg9 08:00 BP 157 / 90; Pulse 59; Resp 14 S; Pulse Ox 99% ; jg9 02:28 Body Mass Index 35.78 (97.52 kg, 165.10 cm) astrid MDM: 07:41 Differential diagnosis: abnormal EKG, anxiety, coronary artery disease gastritis. HEART ma2 Score: History: Slightly Suspicious (0), ECG: Normal (0), Age: < or = 45 years (0), Risk Factors: No Risk Factors Known (0), Troponin: < or = 1 x Normal Limit (0), Total Score = 0. The patient was not given aspirin in the Emergency Department. Data reviewed: vital signs, nurses notes, EMS record, residential records. Counseling: I had a detailed discussion with the patient and/or guardian regarding: the historical points, exam findings, and any diagnostic results supporting the discharge/admit diagnosis, the presence of at least one elevated blood pressure reading (>120/80) during this emergency department visit, the need for outpatient follow up. ED course: received sign out from dr. Bustos as low risk chest pain heart score zero to be discharge if trop is negative. likely anxiety. at this time, high sensitivity trop came back as zero, patient would like to be discharge no chest pain at this time i reviewed risk factors and sign symptoms, heart score zero will discharge home he will f/u with pcp in 1 day . 07:45 Patient medically screened. ma2 06/23 01:51 Order name: Basic Metabolic Panel; Complete Time: 04:00 kdr 06/23 01:51 Order name: CBC with Diff; Complete Time: 04:00 kdr 06/23 01:51 Order name: Troponin HS; Complete Time: 04:00 kdr 06/23 01:51 Order name: XRAY Chest (1 view) kdr 06/23 05:58 Order name: Troponin High Sensitivity kdr 06/23 05:58 Order name: Troponin High Sensitivity; Complete Time: 07:24 EDMS 06/23 01:51 Order name: EKG; Complete Time: 01:52 kdr 06/23 01:51 Order name: Cardiac monitoring; Complete Time: 02:02 kdr 06/23 01:51 Order name: EKG - Nurse/Tech; Complete Time: 02:02 kdr 06/23 01:51 Order name: IV Saline Lock; Complete Time: 02:02 kdr 06/23 01:51 Order name: Labs collected and sent; Complete Time: 02:02 kdr 06/23 01:51 Order name: O2 Per Protocol; Complete Time: 02:03 kdr 06/23 01:51 Order name: O2 Sat Monitoring; Complete Time: 02:03 kdr Administered Medications: No medications were administered Disposition Summary: 06/23/21 07:45 Discharge Ordered Location: Home ma2 Condition: Stable ma2 Diagnosis - Chest pain, unspecified ma2 Followup: ma2 - With: Private Physician - When: Tomorrow - Reason: If symptoms return, Continuance of care Discharge Instructions: - Discharge Summary Sheet ma2 - Nonspecific Chest Pain, Adult ma2 - Form - Excuse from Work, School, or Physical Activity jg9 Forms: - Medication Reconciliation Form ma2 - Thank You Letter ma2 - Antibiotic Education ma2 - Prescription Opioid Use ma2 Signatures: Dispatcher [employer] EDMS Weston Bustos MD MD [facility] Jesus Joshi MD MD mn2 Phyllis Gold RN RN astrid
--- NOTE | 2021-06-23 07:45 | ER ---
Nurse's Notes [facility] Name: Francis Rico Jr Age: 45 yrs Sex: Male : 1975 Arrival Date: 06/23/2021 Time: 01:40 Bed 30 Private MD: Diagnosis: Chest pain, unspecified Presentation: 06/23 01:45 Chief complaint: I recv'd the pt to room 30 at this time. astrid 02:28 Coronavirus screen: Vaccine status: Patient reports being unvaccinated. Ebola Screen: astrid Patient negative for fever greater than or equal to 101.5 degrees Fahrenheit, and additional compatible Ebola Virus Disease symptoms Patient denies exposure to infectious person. Patient denies travel to an Ebola-affected area in the 21 days before illness onset. Initial Sepsis Screen: Does the patient meet any 2 criteria? No. Patient's initial sepsis screen is negative. Does the patient have a suspected source of infection? No. Patient's initial sepsis screen is negative. Risk Assessment: Do you want to hurt yourself or someone else? Patient reports no desire to harm self or others. Onset of symptoms was June 23, 2021. 02:28 Method Of Arrival: Ambulatory astrid 02:28 Acuity: VINH 3 astrid Triage Assessment: 02:44 General: Appears in no apparent distress. Pain: Complains of pain in chest. astrid Cardiovascular: Rhythm is regular. 02:50 General: Behavior is calm, cooperative. astrid Historical: - Allergies: 02:46 No Known Allergies; astrid - Home Meds: 02:44 terbutaline 2.5 mg Oral tab [Active]; astrid - PMHx: 02:43 Gout; astrid - Immunization history:: Client reports having NOT received the Covid vaccine. Flu vaccine is not up to date. Patient has never been vaccinated. - Social history:: Smoking status: Patient denies any tobacco usage or history of. Screenin:49 Abuse screen: Denies threats or abuse. Denies injuries from another. Nutritional astrid screening: No deficits noted. Tuberculosis screening: No symptoms or risk factors identified. Fall Risk None identified. Assessment: 01:45 Pain: Pain began 1 hour ago. astrid 02:47 Reassessment: Patient appears in no apparent distress at this time. Pain: Denies pain. astrid 02:50 Pain: Pain does not radiate. astrid 03:22 Reassessment: The pt is sleeping with his and child at bedside. astrid 06:18 Reassessment: Troponin sent. astrid 06:27 Reassessment: Patient appears in no apparent distress at this time. The pt denies any astrid CP. He ambulated to the bathroom with a steady gait and voided without difficulty. 07:15 Reassessment: Patient and/or family updated on plan of care and expected duration. Pain jg9 level reassessed. Vital Signs: 02:15 BP 140 / 93; Pulse 71; Resp 18; Pulse Ox 99% ; Pain 0/10; astrid 02:28 BP 147 / 98; Pulse 71; Resp 18; Temp 98.5; Pulse Ox 99% on R/A; Weight 97.52 kg; Height astrid 5 ft. 5 in. (165.10 cm); Pain 2/10; 02:44 BP 116 / 88; Pulse 64; Resp 18; Pulse Ox 98% on R/A; Pain 2/10; astrid 03:22 BP 119 / 87; Pulse 67; Resp 16; Pulse Ox 98% on R/A; Pain 0/10; astrid 04:35 BP 113 / 88; Pulse 66; Resp 16; Pulse Ox 98% on R/A; Pain 0/10; astrid 05:36 BP 129 / 92; Pulse 62; Resp 18; Pulse Ox 98% on R/A; Pain 0/10; astrid 06:27 BP 138 / 92; Pulse 64; Resp 18; Temp 98.5; Pulse Ox 100% on R/A; Pain 0/10; astrid 07:00 BP 140 / 97; Pulse 69; Resp 16 S; Pulse Ox 98% ; Pain 0/10; jg9 08:00 BP 157 / 90; Pulse 59; Resp 14 S; Pulse Ox 99% ; jg9 02:28 Body Mass Index 35.78 (97.52 kg, 165.10 cm) astrid ED Course: 01:40 Patient arrived in ED. wm 01:45 Phyllis Gold, TAYLER is Primary Nurse. astrid 01:49 Weston Bustos MD is Attending Physician. kdr 02:07 XRAY Chest (1 view) In Process Unspecified. EDMS 02:07 Troponin HS Sent. astrid 02:07 CBC with Diff Sent. astrid 02:07 Basic Metabolic Panel Sent. astrid 02:43 Triage completed. astrid 02:49 No provider procedures requiring assistance completed. Inserted saline lock: 20 gauge astrid in right antecubital area, using aseptic technique. Patient maintains SpO2 saturation greater than 95% on room air. 02:49 Patient has correct armband on for positive identification. Placed in gown. Bed in low astrid position. Call light in reach. Adult w/ patient. telemetry monitor on. Pulse ox on. NIBP on. 02:50 Arm band placed on. EKG completed in triage. Results shown to MD. astrid 06:18 Troponin High Sensitivity Sent. astrid 06:18 Troponin High Sensitivity Sent. astrid 07:11 Attending Physician role handed off by Weston Bustos MD ma2 07:11 Jesus Joshi MD is Attending Physician. wy2 08:09 IV discontinued. jg9 Administered Medications: No medications were administered Outcome: 02:50 Condition: stable astrid 07:45 Discharge ordered by . ma2 08:09 Discharged to home ambulatory. jg9 08:09 Discharge instructions given to patient, Instructed on discharge instructions, follow up and referral plans. Demonstrated understanding of instructions, follow-up care. 08:09 Patient left the ED. jg9 Signatures: Dispatcher [employer] EDMS Weston Bustos MD MD [facility] Jesus Joshi MD MD ma2 Shantel Traylor Jennifer, RN RN jg9 Phyllis Glod RN RN astrid Corrections: (The following items were deleted from the chart) 02:51 02:51 Pain: Pain began astrid astrid
[2021-06-23 09:34] VITALS: TEMP 98.5
[2021-06-23 09:43] VITALS: BP 157/90; O2SAT 99
--- NOTE | 2021-06-23 12:32 | RAD REPORT ---
EXAM DESCRIPTION: RAD - Chest Single View - 06/23/2021 2:07 am CLINICAL HISTORY: 45 years, Male, CHEST PAIN COMPARISON: None FINDINGS: Single view of the chest was obtained portable. No prior films are available for compariso n. The cardiomediastinal silhouette demonstrate to be unremarkable. The heart is not enlarged. Th e thoracic aorta is unremarkable. Costophrenic angles are sharp. No areas of consolidation or kim s are seen. The rest of the soft tissue and bony structures demonstrate to be unremarkable. IMPRESSION: No acute cardiopulmonary disease identified. Electronically signed by: Rick Strong MD 06/23/2021 2:50 AM CDT Due to temporary technical issues with the PACS/Fluency reporting system, reports are being signed by the in house radiologist without review as a courtesy to ensure prompt reporting. The interpreting r adiologist is fully responsible for the content of the report.
--- NOTE | 2021-06-26 08:27 | EKG ---
Test Date: 2021-06-23 Test Time: 00:51:09 Horse Exerciser: NATTY MEASUREMENT RESULTS: Intervals: Rate: 68 MO: 84 QRSD: 106 QT: 392 QTc: 416 Villas: P: 89 MO: 84 QRS: 48 T: 58 INTERPRETIVE STATEMENTS: Sinus rhythm with short MO Nonspecific ST abnormality Abnormal ECG No previous ECG available for comparison Electronically Signed On 06-26-21 08:22:50 CDT by Ciro Hughes
== END 2021-06-23 08:09 | disposition home or self-care (01) ==
LOC: ER 01:34
DX: R07.9 Chest pain, unspecified (principal); R42 Dizziness and giddiness
CPT/HCPCS: 36415; 71045; 80048; 84484; 85025; 93005; 99285

== ENCOUNTER 2021-07-28 10:39 | Emergency (ER) | payer BC ==
--- OUTSIDE RECORDS SUMMARY | 2021-07-28 10:41 | XMS REPORT | Continuity of Care Document ---
:1975 Author Organization [facility] t Address [address] [place] [address] Dr. Brown [address] [place] [id number] Care Team Providers Name Role Phone Unavailable Unavailable Unavailable Problems This patient has no known problems. Allergies, Adverse Reactions, Alerts This patient has no known allergies or adverse reactions. Medications This patient has no known medications. Procedures This patient has no known procedures. Results This patient has no known results.
[2021-07-28] MEDS ORDERED: NA CHLORIDE 0.9% 500 ML ONE (11:14)
[2021-07-28] MEDS ORDERED: KETOROLAC 30 MG/ML INJ ONE (11:14)
[2021-07-28 11:28] LABS: Absolute Lymphocytes (CBC) 1.5 K/uL (0.7-4.9); Hematocrit 42.6 % (39.6-49.0); Lymphocytes % 19.8 % (15.3-44.8); MPV 8.5 fL (7.6-11.3); RBC Red Blood Cell Count 4.97 M/uL (4.33-5.43)
[2021-07-28 11:42] LABS: Albumin 3.5 g/dL (3.4-5.0); Bilirubin Total 0.5 mg/dL (0.2-1.0); Potassium 4.6 mmol/L (3.5-5.1); Protein, Total 7.3 g/dL (6.4-8.2); Uric Acid 6.9 mg/dL (3.5-7.2)
[2021-07-28] MEDS ORDERED: ONDANSETRON 4 MG/2 ML VIAL ONE ×2 (11:43→13:10)
[2021-07-28] MEDS ORDERED: MORPHINE 4 MG/ML SYR ONE ×2 (11:43→13:10)
[2021-07-28] MEDS ORDERED: COLCHICINE 0.6 MG TAB ONE (11:44)
--- NOTE | 2021-07-28 11:44 | RAD REPORT ---
EXAM DESCRIPTION: RAD - Knee Left 3 View - 07/28/2021 11:37 am CLINICAL HISTORY: PAIN COMPARISON: No comparisons FINDINGS: No fracture, dislocation or periosteal reaction.Mild joint effusion present. No joint spac e narrowing. No soft tissue abnormality. IMPRESSION: Small joint effusion with no acute bone finding. Clinical concerns for internal derangement or occult bony injury could be further assessed with MR im aging.
[2021-07-28] MEDS ORDERED: LIDOCAINE 1% W/EPI 1:100,000 MDV 50 ML VIAL ONE (11:55)
--- NOTE | 2021-07-28 12:49 | EDPHYS ---
Physician Documentation [facility] Name: Francis Rico Jr Age: 45 yrs Sex: Male : 1975 Arrival Date: 07/28/2021 Time: 10:40 Bed 13 Private MD: Jessie Tidwell K ED Physician Jean Shelton HPI: 07/28 11:29 This 45 yrs old Male presents to ER via Wheelchair with complaints of Knee mehdi Pain, Leg Pain. Historical: - Allergies: 10:48 No Known Allergies; iw - Home Meds: 10:48 terbutaline 2.5 mg Oral tab [Active]; iw - PMHx: 10:48 Gout; iw - Immunization history:: Adult Immunizations unknown. - Social history:: Smoking status: unknown. ROS: 11:31 Constitutional: Negative for fever, chills, and weight loss, Eyes: Negative for injury, mehdi pain, redness, and discharge, ENT: Negative for injury, pain, and discharge, Neck: Negative for injury, pain, and swelling, Cardiovascular: Negative for chest pain, palpitations, and edema, Respiratory: Negative for shortness of breath, cough, wheezing, and pleuritic chest pain, Abdomen/GI: Negative for abdominal pain, nausea, vomiting, diarrhea, and constipation, Back: Negative for injury and pain, : Negative for injury, bleeding, discharge, and swelling, Skin: Negative for injury, rash, and discoloration, Neuro: Negative for headache, weakness, numbness, tingling, and seizure, Psych: Negative for depression, anxiety, suicide ideation, homicidal ideation, and hallucinations, Allergy/Immunology: Negative for hives, rash, and allergies, Endocrine: Negative for neck swelling, polydipsia, polyuria, polyphagia, and marked weight changes, Hematologic/Lymphatic: Negative for swollen nodes, abnormal bleeding, and unusual bruising. 11:31 MS/extremity: Positive for pain, swelling, tenderness. Exam: 11:31 Constitutional: This is a well developed, well nourished patient who is awake, alert, mehdi and in no acute distress. Head/Face: Normocephalic, atraumatic. Eyes: Pupils equal round and reactive to light, extra-ocular motions intact. Lids and lashes normal. Conjunctiva and sclera are non-icteric and not injected. Cornea within normal limits. Periorbital areas with no swelling, redness, or edema. ENT: Nares patent. No nasal discharge, no septal abnormalities noted. Tympanic membranes are normal and external auditory canals are clear. Oropharynx with no redness, swelling, or masses, exudates, or evidence of obstruction, uvula midline. Mucous membranes moist. Neck: Trachea midline, no thyromegaly or masses palpated, and no cervical lymphadenopathy. Supple, full range of motion without nuchal rigidity, or vertebral point tenderness. No Meningismus. Chest/axilla: Normal chest wall appearance and motion. Nontender with no deformity. No lesions are appreciated. Cardiovascular: Regular rate and rhythm with a normal S1 and S2. No gallops, murmurs, or rubs. Normal PMI, no JVD. No pulse deficits. Respiratory: Lungs have equal breath sounds bilaterally, clear to auscultation and percussion. No rales, rhonchi or wheezes noted. No increased work of breathing, no retractions or nasal flaring. Abdomen/GI: Soft, non-tender, with normal bowel sounds. No distension or tympany. No guarding or rebound. No evidence of tenderness throughout. Back: No spinal tenderness. No costovertebral tenderness. Full range of motion. Skin: Warm, dry with normal turgor. Normal color with no rashes, no lesions, and no evidence of cellulitis. Neuro: Awake and alert, GCS 15, oriented to person, place, time, and situation. Cranial nerves II-XII grossly intact. Motor strength 5/5 in all extremities. Sensory grossly intact. Cerebellar exam normal. Normal gait. Psych: Awake, alert, with orientation to person, place and time. Behavior, mood, and affect are within normal limits. 11:31 Musculoskeletal/extremity: Extremities: noted in the lateral aspect of left knee, medial aspect of left knee and left knee: decreased ROM, pain. Vital Signs: 10:46 BP 130 / 96; Pulse 100; Resp 18; Temp 98.7; Pulse Ox 99% on R/A; iw 11:49 BP 116 / 89; Pulse 97; Resp 18; Pulse Ox 97% ; ab2 13:10 BP 133 / 89; Pulse 81; Resp 17; Pulse Ox 100% on R/A; ab2 Procedures: 11:41 Performed left knee aspiration. mehdi MDM: 10:57 Patient medically screened. mehdi 11:32 Differential diagnosis: contusion, tendonitis. Data reviewed: vital signs, nurses [facility] notes, lab test result(s), CBC, electrolytes, hepatic panel. Data interpreted: ekg monitor tech: not applicable for this patient encounter. rate is 100 beats/min, Pulse oximetry: on. Test interpretation: by ED physician or midlevel provider: plain radiologic studies. Counseling: I had a detailed discussion with the patient and/or guardian regarding: the historical points, exam findings, and any diagnostic results supporting the discharge/admit diagnosis, lab results, radiology results, the need for outpatient follow up, for definitive care, a family practitioner, a orthopedic surgeon. 07/28 11:00 Order name: CBC with Diff; Complete Time: 11:41 [facility] 07/28 11:00 Order name: Comprehensive Metabolic Panel; Complete Time: 12:34 [facility] 07/28 11:00 Order name: Uric Acid; Complete Time: 12:34 [facility] 07/28 13:18 Order name: Body Fluid Cell Count [facility] 07/28 13:18 Order name: LD, SYNOVIAL FLUID [facility] 07/28 13:18 Order name: TOTAL PROTEIN, SYNOVIAL FLUID [facility] 07/28 10:59 Order name: Knee Left 3 View XRAY; Complete Time: 12:34 [facility] 07/28 13:18 Order name: GLUCOSE, SYNOVIAL FLUID [facility] 07/28 13:18 Order name: Body Fluid Crystals [facility] 07/28 13:18 Order name: Body Fluid Culture [facility] 07/28 11:41 Order name: Knee Immobilizer; Complete Time: 11:55 [facility] 07/28 11:41 Order name: Crutches; Complete Time: 11:55 [facility] 07/28 11:41 Order name: Ice pack; Complete Time: 11:55 [facility] 07/28 11:43 Order name: Dressing - Wound; Complete Time: 11:55 [facility] 07/28 11:43 Order name: Gloves, Sterile; Complete Time: 11:55 [facility] 07/28 11:43 Order name: Setup Suture Tray; Complete Time: 11:55 [facility] 07/28 11:43 Order name: Misc. Order: 2 30-60 cc syringes, 18 bguage needle; Complete Time: 11:55 [facility] Administered Medications: 11:12 Drug: Ketorolac 30 mg Route: IVP; Site: right antecubital; ab2 11:34 Follow up: Response: No adverse reaction ab2 11:13 Drug: NS 0.9% 500 ml Route: IV; Rate: bolus; Site: right antecubital; ab2 11:35 Follow up: Response: No adverse reaction; IV Status: Completed infusion ab2 11:44 Drug: morphine 4 mg Route: IVP; Site: right antecubital; ab2 13:26 Follow up: Response: No adverse reaction ab2 11:45 Drug: Zofran (Ondansetron) 4 mg Route: IVP; Site: right antecubital; ab2 13:27 Follow up: Response: No adverse reaction ab2 11:45 Drug: Colcrys (colchicine) 1.2 mg Route: PO; ab2 13:27 Follow up: Response: No adverse reaction ab2 12:50 Drug: Colcrys (colchicine) 0.6 mg Route: PO; ab2 13:26 Follow up: Response: No adverse reaction ab2 12:50 Drug: Lidocaine-Epinephrine -1%: (1:100,000) 5 ml {Note: used by ED physician.} Volume: ab2 20 ml; Route: Infiltration; 13:10 Drug: morphine 4 mg Route: IVP; Site: right antecubital; ab2 13:26 Follow up: Response: No adverse reaction ab2 13:10 Drug: Zofran (Ondansetron) 4 mg Route: IVP; Site: right antecubital; ab2 13:26 Follow up: Response: No adverse reaction ab2 Disposition Summary: 07/28/21 12:48 Discharge Ordered Location: Home mehdi Problem: new mehdi Symptoms: have improved mehdi Condition: Stable mehdi Diagnosis - Effusion, left knee mehdi - Pain in left knee mehdi - Gout, unspecified mehdi Followup: mehdi - With: - When: 2 - 3 days - Reason: Recheck today's complaints, Continuance of care, Re-evaluation by your physician Followup: mehdi - With: - When: 2 - 3 days - Reason: Recheck today's complaints, Re-evaluation by your physician Discharge Instructions: - Discharge Summary Sheet mehdi - Joint Pain mehdi - Gout mehdi - Knee Effusion mehdi - Musculoskeletal Pain mehdi - Acute Knee Pain, Adult mehdi - How to Use Cold Therapy, Cnyb-mg-Qqok mehdi - Low-Purine Eating Plan mehdi - Knee Effusion, Bqnb-[id number] mehdi - Gout, Liok-dp-Ohmj mehdi - How to Use Cold Therapy mehdi - Acute Knee Pain, Adult, Muob-mj-Upjn mehdi Forms: - Medication Reconciliation Form mehdi - Thank You Letter mehdi - Antibiotic Education mehdi - Prescription Opioid Use mehdi - Work release form eb Prescriptions: - Tylenol-Codeine #3 300 mg-30 mg Oral - take 2 tablet by ORAL route every 6 hours; 24 tablet; Refills: 0, Product [facility] Selection Permitted - colchicine 0.6 mg Oral capsule - take 1 capsule by ORAL route every 1 hour up to 3 hours; 6 capsule; Refills: 0, [facility] Product Selection Permitted - indomethacin 50 mg Oral capsule - take 1 capsule by ORAL route 3 times per day for 7 days; 21 capsule; Refills: [facility] 0, Product Selection Permitted Signatures: Dispatcher [employer] Jean Archer MD MD cha Williams, Irene, RN RN Golden Rice
--- NOTE | 2021-07-28 12:49 | ER ---
Nurse's Notes [facility] Name: Francis Rico Jr Age: 45 yrs Sex: Male : 1975 Arrival Date: 07/28/2021 Time: 10:40 Bed 13 Private MD: Jessie Tidwell K Diagnosis: Effusion, left knee;Pain in left knee;Gout, unspecified Presentation: 07/28 10:46 Chief complaint: Patient states: Saturday night was at work and left knee flared up , has iw been giving him problems for past year. was told it was gout , was taking indomethacin and then colchicine and has not helped , had an US done on 07-25 and was negative for DVT. Coronavirus screen: At this time, the client does not indicate any symptoms associated with coronavirus-19. Ebola Screen: Patient negative for fever greater than or equal to 101.5 degrees Fahrenheit, and additional compatible Ebola Virus Disease symptoms Patient denies exposure to infectious person. Patient denies travel to an Ebola-affected area in the 21 days before illness onset. No symptoms or risks identified at this time. Initial Sepsis Screen: Does the patient meet any 2 criteria? No. Patient's initial sepsis screen is negative. Does the patient have a suspected source of infection?. Risk Assessment: Do you want to hurt yourself or someone else? Patient reports no desire to harm self or others. Onset of symptoms was July 23, 2021. 10:46 Method Of Arrival: Wheelchair iw 10:46 Acuity: VINH 4 iw 11:01 Acuity: VINH 3 iw Historical: - Allergies: 10:48 No Known Allergies; iw - Home Meds: 10:48 terbutaline 2.5 mg Oral tab [Active]; iw - PMHx: 10:48 Gout; iw - Immunization history:: Adult Immunizations unknown. - Social history:: Smoking status: unknown. Screenin:01 Abuse screen: Denies threats or abuse. Denies injuries from another. Nutritional ab2 screening: No deficits noted. Tuberculosis screening: No symptoms or risk factors identified. Fall Risk None identified. Assessment: 11:00 General: Appears in no apparent distress. uncomfortable, Behavior is calm, cooperative, ab2 appropriate for age. General: Behavior is. Pain: Complains of pain in left knee. Neuro: Level of Consciousness is awake, alert, obeys commands, Oriented to person, place, time, situation, Appropriate for age Manager Stars are equal bilaterally Speech is normal. Neuro: Cardiovascular: No deficits noted. Denies chest pain, shortness of breath, Heart tones S1 S2 present Patient's skin is warm and dry. Respiratory: No deficits noted. Airway is patent Respiratory effort is even, unlabored, Respiratory pattern is regular, symmetrical, Breath sounds are clear bilaterally. GI: No deficits noted. No signs and/or symptoms were reported involving the gastrointestinal system. Abdomen is round non-distended. : No deficits noted. No signs and/or symptoms were reported regarding the genitourinary system. Derm: No deficits noted. No signs and/or symptoms reported regarding the dermatologic system. Skin is intact, is healthy with good turgor, Skin is pink, warm \T\ dry. Musculoskeletal: Reports pain in left knee. Vital Signs: 10:46 BP 130 / 96; Pulse 100; Resp 18; Temp 98.7; Pulse Ox 99% on R/A; iw 11:49 BP 116 / 89; Pulse 97; Resp 18; Pulse Ox 97% ; ab2 13:10 BP 133 / 89; Pulse 81; Resp 17; Pulse Ox 100% on R/A; ab2 ED Course: 10:40 Patient arrived in ED. ds1 10:40 Jessie Tidwell MD is Private Physician. ds1 10:48 Triage completed. iw 10:48 Arm band placed on. iw 10:57 Jean Shelton MD is Attending Physician. mehdi 10:58 Golden Romero is Primary Nurse. ab2 11:01 Patient has correct armband on for positive identification. Bed in low position. Call ab2 light in reach. Side rails up X2. Adult w/ patient. 11:01 No provider procedures requiring assistance completed. ab2 11:13 Inserted saline lock: 20 gauge in right antecubital area, using aseptic technique. ab2 Blood collected. 11:38 Knee Left 3 View XRAY In Process Unspecified. EDMS 12:48 Jessie Tidwell MD is Referral Physician. mehdi 12:48 Eric Curry MD is Referral Physician. mehdi 13:27 Crutch training done. Knee immobilizer applied on left knee. ab2 13:28 Assist provider with aspiration of left knee using 18 gauge needle, Lidocaine, fluid ab2 removed was yellow, Specimen sent to lab. Removed 25 ml's of fluid Set up for procedure. Performed by Jean Shelton MD Dressed with band aid, Neosporin, Patient tolerated well. IV discontinued, intact, bleeding controlled, No redness/swelling at site. Pressure dressing applied. Administered Medications: 11:12 Drug: Ketorolac 30 mg Route: IVP; Site: right antecubital; ab2 11:34 Follow up: Response: No adverse reaction ab2 11:13 Drug: NS 0.9% 500 ml Route: IV; Rate: bolus; Site: right antecubital; ab2 11:35 Follow up: Response: No adverse reaction; IV Status: Completed infusion ab2 11:44 Drug: morphine 4 mg Route: IVP; Site: right antecubital; ab2 13:26 Follow up: Response: No adverse reaction ab2 11:45 Drug: Zofran (Ondansetron) 4 mg Route: IVP; Site: right antecubital; ab2 13:27 Follow up: Response: No adverse reaction ab2 11:45 Drug: Colcrys (colchicine) 1.2 mg Route: PO; ab2 13:27 Follow up: Response: No adverse reaction ab2 12:50 Drug: Colcrys (colchicine) 0.6 mg Route: PO; ab2 13:26 Follow up: Response: No adverse reaction ab2 12:50 Drug: Lidocaine-Epinephrine -1%: (1:100,000) 5 ml {Note: used by ED physician.} Volume: ab2 20 ml; Route: Infiltration; 13:10 Drug: morphine 4 mg Route: IVP; Site: right antecubital; ab2 13:26 Follow up: Response: No adverse reaction ab2 13:10 Drug: Zofran (Ondansetron) 4 mg Route: IVP; Site: right antecubital; ab2 13:26 Follow up: Response: No adverse reaction ab2 Outcome: 12:48 Discharge ordered by . mehdi 13:28 Discharged to home ab2 13:28 Condition: good 13:28 Discharge instructions given to patient, Instructed on discharge instructions, follow up and referral plans. medication usage, crutch walking, Demonstrated understanding of instructions, follow-up care, medications, crutch walking, Prescriptions given X 3. 13:29 Patient left the ED. ab2 Signatures: Dispatcher [employer] EDJean Powell MD MD cha Sanford, Demi ds1 Isha Mcpherson RN RN Golden Rice ab2 Corrections: (The following items were deleted from the chart) 10:55 10:46 Chief complaint: Patient states: Saturday night was at work and left knee flared up iw , has been giving him problems for past year. was told it was gout , was taking indomethacin and then colchicine and has not helped iw
[2021-07-28 13:43] VITALS: TEMP 98.7
[2021-07-28 13:46] VITALS: BP 133/89; O2SAT 100
[2021-07-28 13:55] LABS: Body Fluid WBC 5845 /mm^3
[2021-07-28 14:31] LABS: Body Fluid Source SYNOVIAL; Color of fluid Yellow (COLORLESS)
[2021-07-28 14:32] LABS: Appearance TURBID (CLEAR)
[2021-08-01 05:41] LABS: GLUCOSE, SYNOVIAL FLUID 92 mg/dL
== END 2021-07-28 13:29 | disposition home or self-care (01) ==
LOC: ER 10:39
DX: M25.462 Effusion, left knee (principal); M10.9 Gout, unspecified
CPT/HCPCS: 87070; 85025; 36415; 89050; 83615; 84157; 82945; 84550; 80053; 89060; 73562; 96375; 96374; 99284; J7040; J2405 ×2

== ENCOUNTER 2021-08-16 17:16 | Emergency (ER) | payer BC ==
--- OUTSIDE RECORDS SUMMARY | 2021-08-16 17:18 | XMS REPORT | Continuity of Care Document ---
:1975 Author Organization [facility] t Address [facility] Brown [address] [place] [id number] Care Team Providers Name Role Phone Unavailable Unavailable Unavailable Problems This patient has no known problems. Allergies, Adverse Reactions, Alerts This patient has no known allergies or adverse reactions. Medications This patient has no known medications. Procedures This patient has no known procedures. Encounters Start End Encounter Admission Attending Care Care Encounter Source Date/Time Date/Time Type Type Clinicians Facility Department ID 2021-08-[address] [facility] [id number] Common 10:04:03 [facility] Results This patient has no known results.
--- NOTE | 2021-08-16 17:57 | EDPHYS ---
Physician Documentation [facility] Name: Francis Rico Jr Age: 45 yrs Sex: Male : 1975 Arrival Date: 08/16/2021 Time: 17:23 Bed Waiting Private MD: ED Physician Evan Ibrahim HPI: 08/16 18:04 This 45 yrs old Male presents to ER via Unassigned with complaints of Knee Pain, ms3 Abdominal Pain. 18:04 The patient presents with pain. The complaints affect the left knee. Context: the ms3 patient can partially bear weight. Onset: The symptoms/episode began/occurred 1 month(s) ago. Modifying factors: The symptoms are alleviated by nothing. the symptoms are aggravated by movement, weight bearing, bending knee. Associated signs and symptoms: Pertinent negatives fever. Treatment prior to arrival includes: Knee immobilizer. Historical: - Allergies: 18:15 No Known Allergies; jl7 - Home Meds: 18:15 terbutaline 2.5 mg Oral tab [Active]; jl7 - PMHx: 18:15 Gout; jl7 - Immunization history:: Adult Immunizations unknown. - Social history:: Smoking status: Patient denies any tobacco usage or history of. ROS: 18:04 Constitutional: Negative for fever, and chills. Neck: Negative for injury, pain, and ms3 swelling, Cardiovascular: Negative for chest pain, and palpitations. Respiratory: Negative for shortness of breath, cough, wheezing, and pleuritic chest pain, Abdomen/GI: Negative for abdominal pain, nausea, vomiting, diarrhea, and constipation, Skin: Negative for injury, rash, and discoloration, Neuro: Negative for headache, weakness, numbness, tingling. 18:04 MS/extremity: Positive for pain, of the left knee. 18:04 All other systems are negative. Exam: 18:04 Constitutional: This is a well developed, well nourished patient who is awake, alert, ms3 and in no acute distress. Head/Face: Normocephalic, atraumatic. Chest/axilla: Normal chest wall appearance and motion. Nontender with no deformity. Cardiovascular: Regular rate and rhythm with a normal S1 and S2. No gallops, murmurs, or rubs. Normal PMI, no JVD. No pulse deficits. Respiratory: Lungs have equal breath sounds bilaterally, clear to auscultation and percussion. No rales, rhonchi or wheezes noted. No increased work of breathing, no retractions or nasal flaring. Abdomen/GI: Soft, non-tender, with normal bowel sounds. No distension or tympany. No guarding or rebound. No evidence of tenderness throughout. Skin: Warm, dry with normal turgor. Normal color with no rashes, no lesions, and no evidence of cellulitis. Psych: Awake, alert, with orientation to person, place and time. Behavior, mood, and affect are within normal limits. 18:04 Musculoskeletal/extremity: Extremities: noted in the left knee: pain, swelling. Vital Signs: 18:14 BP 129 / 93; Pulse 89; Resp 15; Temp 98.9; Pulse Ox 98% ; Weight 95.25 kg; Height 5 ft. jl7 9 in. (175.26 cm); Pain 10/10; 18:14 Body Mass Index 31.01 (95.25 kg, 175.26 cm) jl7 MDM: 17:56 Patient medically screened. ms3 18:04 Data reviewed: vital signs, nurses notes, old medical records, 07/28/2021 synovial fluid ms3 positive for birefringent crystals. Counseling: I had a detailed discussion with the patient and/or guardian regarding: the historical points, exam findings, and any diagnostic results supporting the discharge/admit diagnosis, the need for outpatient follow up, to return to the emergency department if symptoms worsen or persist or if there are any questions or concerns that arise at home. ED course: Discussed physical exam findings with patient. Patient to follow-up with Dr. Palma in 2 to 3 days. Patient understands and agrees with plan. All questions were answered. Return precautions discussed include worsening symptoms, or any other concerns. . Administered Medications: 18:18 Drug: Colcrys (colchicine) 1.2 mg Route: PO; 7 18:19 Follow up: Response: Medication administered at discharge. jl7 18:18 Drug: Ondansetron 4 mg Route: PO; jl7 18:19 Follow up: Response: Medication administered at discharge. jl7 18:19 Drug: Hydrocodone-Acetaminophen (10 mg-500 mg) 1 tabs Route: PO; jl7 18:20 Follow up: Response: Medication administered at discharge. jl7 18:19 Drug: Ketorolac 30 mg Route: IM; Site: right deltoid; jl7 18:19 Follow up: Response: Medication administered at discharge. jl7 Disposition Summary: 08/16/21 17:56 Discharge Ordered Location: Home ms3 Condition: Stable ms3 Diagnosis - Pain in left knee ms3 - Idiopathic gout, left knee ms3 Followup: ms3 - With: Eric Curry MD - When: 2 - 3 days - Reason: Recheck today's complaints Discharge Instructions: - Discharge Summary Sheet ms3 - Gout ms3 Forms: - Medication Reconciliation Form ms3 - Thank You Letter ms3 - Antibiotic Education ms3 - Prescription Opioid Use ms3 Prescriptions: - colchicine 0.6 mg Oral tablet - take 1 tablet by ORAL route once daily; 20 tablet; Refills: 0, Product ms3 Selection Permitted - Tylenol-Codeine #3 300 mg-30 mg Oral - take 1 tablet by ORAL route every 6 hours for 3 days; 12 tablet; Refills: 0, ms3 Product Selection Permitted Signatures: Andreina Vaughan RN RN jl7 Evan Ibrahim DO DO ms3
[2021-08-16] MEDS ORDERED: HYDROCODONE/APAP 10/325 TAB ONE (18:10)
[2021-08-16] MEDS ORDERED: ONDANSETRON 4 MG/2 ML VIAL ONE (18:11)
[2021-08-16] MEDS ORDERED: KETOROLAC 30 MG/ML INJ ONE (18:11)
[2021-08-16] MEDS ORDERED: COLCHICINE 0.6 MG TAB ONE (18:11)
[2021-08-16] MEDS ORDERED: ONDANSETRON 4 MG (ODT) TAB ONE (18:12)
--- NOTE | 2021-08-16 19:00 | ER ---
Nurse's Notes [facility] Name: Francis Rico Jr Age: 45 yrs Sex: Male : 1975 Arrival Date: 08/16/2021 Time: 17:23 Bed Waiting Private MD: Diagnosis: Pain in left knee;Idiopathic gout, left knee Presentation: 08/16 18:14 Chief complaint: Patient states: Left knee pain and swelling. Coronavirus screen: At jl7 this time, the client does not indicate any symptoms associated with coronavirus-19. Ebola Screen: No symptoms or risks identified at this time. Initial Sepsis Screen: Does the patient meet any 2 criteria? No. Patient's initial sepsis screen is negative. Does the patient have a suspected source of infection? No. Patient's initial sepsis screen is negative. Risk Assessment: Do you want to hurt yourself or someone else? Patient reports no desire to harm self or others. Onset of symptoms is unknown. 18:14 Method Of Arrival: Wheelchair jl7 18:14 Acuity: VINH 4 jl7 Triage Assessment: 18:15 General: Appears in no apparent distress. uncomfortable, Behavior is calm, cooperative, jl7 appropriate for age. Pain: Complains of pain in left knee Pain currently is 10 out of 10 on a pain scale. GI: No signs and/or symptoms were reported involving the gastrointestinal system. Historical: - Allergies: 18:15 No Known Allergies; jl7 - Home Meds: 18:15 terbutaline 2.5 mg Oral tab [Active]; jl7 - PMHx: 18:15 Gout; jl7 - Immunization history:: Adult Immunizations unknown. - Social history:: Smoking status: Patient denies any tobacco usage or history of. Screenin:18 Abuse screen: Denies threats or abuse. Denies injuries from another. Nutritional jl7 screening: No deficits noted. Tuberculosis screening: No symptoms or risk factors identified. Fall Risk Ambulatory Aid- None/Bed Rest/Nurse Assist (0 pts). Vital Signs: 18:14 BP 129 / 93; Pulse 89; Resp 15; Temp 98.9; Pulse Ox 98% ; Weight 95.25 kg; Height 5 ft. jl7 9 in. (175.26 cm); Pain 10/10; 18:14 Body Mass Index 31.01 (95.25 kg, 175.26 cm) jl7 ED Course: 17:23 Patient arrived in ED. ds1 17:48 Evan Ibrahim DO is Attending Physician. ms3 17:55 Eric Curry MD is Referral Physician. ms3 18:15 Triage completed. jl7 18:15 Arm band placed on right wrist. jl7 18:16 Patient has correct armband on for positive identification. jl7 18:16 No provider procedures requiring assistance completed. Patient did not have IV access jl7 during this emergency room visit. Administered Medications: 18:18 Drug: Colcrys (colchicine) 1.2 mg Route: PO; jl7 18:19 Follow up: Response: Medication administered at discharge. jl7 18:18 Drug: Ondansetron 4 mg Route: PO; jl7 18:19 Follow up: Response: Medication administered at discharge. jl7 18:19 Drug: Hydrocodone-Acetaminophen (10 mg-500 mg) 1 tabs Route: PO; jl7 18:20 Follow up: Response: Medication administered at discharge. jl7 18:19 Drug: Ketorolac 30 mg Route: IM; Site: right deltoid; jl7 18:19 Follow up: Response: Medication administered at discharge. jl7 Medication: 18:16 VIS not applicable for this client. jl7 Outcome: 17:56 Discharge ordered by . ms3 18:16 Discharged to home with family. jl7 18:16 Condition: stable 18:16 Discharge instructions given to patient, Instructed on discharge instructions, follow up and referral plans. medication usage, Demonstrated understanding of instructions, follow-up care, medications, Prescriptions given X 3. 18:59 Patient left the ED. jl7 Signatures: Vianca Pedraza ds1 Andreina Vaughan, RN RN jl7 Evan Ibrahim DO DO ms3
[2021-08-16 20:49] VITALS: BP 129/93; TEMP 98.9; O2SAT 98
== END 2021-08-16 18:59 | disposition home or self-care (01) ==
LOC: ER 17:16
DX: M10.062 Idiopathic gout, left knee (principal)
CPT/HCPCS: 96372; 99283; J2405

== ENCOUNTER 2022-04-28 12:47 | Emergency (ER) | payer BC ==
--- OUTSIDE RECORDS SUMMARY | 2022-04-28 12:50 | XMS REPORT | Continuity of Care Document ---
:1975 Author Organization [facility] t Address [address] Brown [address] [place] [id number] Care Team Providers Name Role Phone Unavailable Unavailable Unavailable Problems This patient has no known problems. Allergies, Adverse Reactions, Alerts This patient has no known allergies or adverse reactions. Medications This patient has no known medications. Procedures This patient has no known procedures. Encounters Start End Encounter Admission Attending Care Care Encounter Source Date/Time Date/Time Type Type Clinicians Facility Department ID 2022-04-24 Outpatient [facility] [id number] Common 09:21:[id number] [facility] 2021-08-11 Outpatient [facility] [id number] Common 10:04:03 [facility] Results This patient has no known results.
[2022-04-28] MEDS ORDERED: dexAMETHasone 10 MG/ML VIAL ONE (14:19)
[2022-04-28] MEDS ORDERED: KETOROLAC 30 MG/ML INJ ONE (14:20)
--- NOTE | 2022-04-28 14:26 | RAD REPORT ---
EXAM DESCRIPTION: RAD - Lumbar Spine 3 Views - 04/28/2022 2:04 pm CLINICAL HISTORY: back pain COMPARISON: <Comparisons> FINDINGS: No acute fracture. No malalignment. No significant focal degenerative changes. IMPRESSION: No acute osseous abnormality involving the lumbar spine.
--- NOTE | 2022-04-28 14:27 | RAD REPORT ---
EXAM DESCRIPTION: RAD - Pelvis - 04/28/2022 2:05 pm CLINICAL HISTORY: right hip pain COMPARISON: None FINDINGS/IMPRESSION: No acute fracture. No malalignment. No significant focal degenerative changes.
--- NOTE | 2022-04-28 15:33 | EDPHYS ---
Physician Documentation [facility] Name: Francis Rico Jr Age: 46 yrs Sex: Male : 1975 Arrival Date: 04/28/2022 Time: 12:49 Bed IW2 Private MD: ED Physician Jos Gurrola HPI: 04/28 13:41 This 46 yrs old Male presents to ER via Ambulatory with complaints of Low Back Pain, jmm Hip Pain. 13:41 The patient presents with pain that is acute. The symptoms are located in the low back. jmm The pain radiates to the right leg. Onset: The symptoms/episode began/occurred gradually, 2 day(s) ago. Modifying factors: the patient symptoms are aggravated by Lifting leg. Is a 46-year-old male with history of gout the presents emerged from with complaints of right lower back pain which radiates into his hip and buttocks. Patient denies any known injury. Denies history of sciatica. Also states having a gout flare in his right foot as well. Denies fever or chills. Denies any bowel or bladder issues.. Historical: - Allergies: 12:58 No Known Allergies; jl7 - Home Meds: 12:58 Allopurinol Oral [Active]; jl7 - PMHx: 12:58 Gout; jl7 - PSHx: 12:58 Appendectomy; jl7 - Immunization history:: Client reports having NOT received the Covid vaccine. - Social history:: Smoking status: Patient denies any tobacco usage or history of. ROS: 13:41 Constitutional: Negative for fever, chills, and weight loss, Cardiovascular: Negative jmm for chest pain, palpitations, and edema, Respiratory: Negative for shortness of breath, cough, wheezing, and pleuritic chest pain. 13:41 Back: Positive for pain with movement. 13:41 All other systems are negative. Exam: 13:41 Constitutional: This is a well developed, well nourished patient who is awake, alert, jmm and in no acute distress. Head/Face: atraumatic. Eyes: EOMI, no conjunctival erythema appreciated ENT: Moist Mucus Membranes Neck: Trachea midline, Supple Chest/axilla: Normal chest wall appearance and motion. Cardiovascular: Regular rate and rhythm. No edema appreciated Respiratory: Normal respirations, no respiratory distress appreciated Abdomen/GI: Non distended 13:41 Back: pain, that is mild, of the right low back. 13:41 Musculoskeletal/extremity: Pain on lifting the right leg., Extensor hallucis longus intact bilaterally. 13:41 Skin: Appearance: Color: normal in color. 13:41 Neuro: Orientation: is normal, Mentation: is normal, Memory: is normal. 13:41 Psych: Behavior/mood is pleasant, cooperative. Vital Signs: 12:56 BP 150 / 104; Pulse 82; Resp 17 S; Temp 97.9(TE); Pulse Ox 100% on R/A; Weight 97.07 kg 7 (R); Height 5 ft. 6 in. (167.64 cm); Pain 10/10; 12:56 Body Mass Index 34.54 (97.07 kg, 167.64 cm) jl7 MDM: 13:41 Patient medically screened. [facility] 15:31 Data reviewed: vital signs, nurses notes. I considered the following discharge [facility] prescriptions or medication management in the emergency department Medications were administered in the Emergency Department. See MAR. Care significantly affected by the following chronic conditions: Gout. Counseling: I had a detailed discussion with the patient and/or guardian regarding: the historical points, exam findings, and any diagnostic results supporting the discharge/admit diagnosis, radiology results, the need for outpatient follow up, to return to the emergency department if symptoms worsen or persist or if there are any questions or concerns that arise at home. Response to treatment: the patient's symptoms have mildly improved after treatment. 04/28 13:42 Order name: Lumbar Spine (3 Views) XRAY; Complete Time: 14:27 [facility] 04/28 13:42 Order name: Pelvis XRAY; Complete Time: 14:27 [facility] Administered Medications: 14:27 Drug: Ketorolac 30 mg Route: IM; Site: right deltoid; jl7 16:30 Follow up: Response: No adverse reaction; Pain is decreased [facility] 14:27 Drug: Decadron (dexamethasone) 10 mg Route: IM; Site: left deltoid; jl7 16:30 Follow up: Response: No adverse reaction 7 Disposition: 04/29 13:32 Co-signature as Attending Physician, Jos Gurrola MD I reviewed the patient's care rn provided by the Advanced Practice Provider and agree with the diagnosis and treatment plan. Disposition Summary: 04/28/22 15:32 Discharge Ordered Location: Home jm Condition: Stable jmm Diagnosis - Low back pain jmm - Pain in hip jmm Followup: jmm - With: Eric Curry MD - When: 2 - 3 days - Reason: Recheck today's complaints, Continuance of care, Re-evaluation by your physician Discharge Instructions: - Discharge Summary Sheet jmm - Acute Back Pain, Adult jmm - Musculoskeletal Pain jmm - Sciatica Rehab-SportsMed [facility] Forms: - Medication Reconciliation Form [facility] - Thank You Letter [facility] - Antibiotic Education jmm - Prescription Opioid Use [facility] Prescriptions: - Zanaflex 4 mg Oral Tablet - take 1 tablet by ORAL route every 8 hours As needed; 20 tablet; Refills: 0, [facility] Product Selection Permitted - Diclofenac Sodium 75 mg Oral Tablet Sustained Release - take 1 tablet by ORAL route 2 times per day; 30 tablet; Refills: 0, Product [facility] Selection Permitted - Medrol (Gregorio) 4 mg Oral Tablets, Dose Pack - take 1 tablet by ORAL route as directed - follow package instructions; 1 jm packet; Refills: 0, Product Selection Permitted Signatures: Dispatcher [employer] EDMatthew Mcdonough PA PA m Jos Gurrola MD MD rn Leal, Jahala, RN RN jl7
--- NOTE | 2022-04-28 15:33 | ER ---
Nurse's Notes [facility] Name: Francis Rico Jr Age: 46 yrs Sex: Male : 1975 Arrival Date: 04/28/2022 Time: 12:49 Bed IW2 Private MD: Diagnosis: Low back pain;Pain in hip Presentation: 04/28 12:56 Chief complaint: Patient states: Low back pain, right hip pain x 2 days, hx of gout, jl7 out of allopurinol. Coronavirus screen: Vaccine status: Patient reports being unvaccinated. At this time, the client does not indicate any symptoms associated with coronavirus-19. Ebola Screen: No symptoms or risks identified at this time. Initial Sepsis Screen: Does the patient meet any 2 criteria? No. Patient's initial sepsis screen is negative. Does the patient have a suspected source of infection? No. Patient's initial sepsis screen is negative. Risk Assessment: Do you want to hurt yourself or someone else? Patient reports no desire to harm self or others. Onset of symptoms was April 26, 2022. 12:56 Method Of Arrival: Ambulatory [facility] 12:56 Acuity: VINH 4 jl7 Triage Assessment: 12:58 General: Appears in no apparent distress. uncomfortable, Behavior is calm, cooperative, jl7 appropriate for age. Pain: Complains of pain in low back area Pain radiates to right hip Pain currently is 10 out of 10 on a pain scale. Neuro: Level of Consciousness is awake, alert, obeys commands, Oriented to person, place, time, situation, Gait is steady. Historical: - Allergies: 12:58 No Known Allergies; jl7 - Home Meds: 12:58 Allopurinol Oral [Active]; jl7 - PMHx: 12:58 Gout; jl7 - PSHx: 12:58 Appendectomy; jl7 - Immunization history:: Client reports having NOT received the Covid vaccine. - Social history:: Smoking status: Patient denies any tobacco usage or history of. Screenin:20 [facility] ED Fall Risk Assessment (Adult) History of falling in the last 3 months, jl7 including since admission No falls in past 3 months (0 pts). Abuse screen: Denies threats or abuse. Denies injuries from another. Nutritional screening: No deficits noted. Tuberculosis screening: No symptoms or risk factors identified. Assessment: 16:20 Reassessment: Pt reports slight decrease in pain on discharge. jl7 Vital Signs: 12:56 BP 150 / 104; Pulse 82; Resp 17 S; Temp 97.9(TE); Pulse Ox 100% on R/A; Weight 97.07 kg jl7 (R); Height 5 ft. 6 in. (167.64 cm); Pain 10/10; 12:56 Body Mass Index 34.54 (97.07 kg, 167.64 cm) jl7 ED Course: 12:49 Patient arrived in ED. as 12:57 Triage completed. jl7 12:58 Arm band placed on right wrist. jl7 13:00 Matthew Vidal PA is PHCP. ernst 13:00 Jos Gurrola MD is Attending Physician. jmm 14:05 Lumbar Spine (3 Views) XRAY In Process Unspecified. EDMS 14:05 Pelvis XRAY In Process Unspecified. EDMS 15:32 Eric Curry MD is Referral Physician. [facility] 16:20 Patient has correct armband on for positive identification. jl7 16:20 No provider procedures requiring assistance completed. Patient did not have IV access jl7 during this emergency room visit. Administered Medications: 14:27 Drug: Ketorolac 30 mg Route: IM; Site: right deltoid; jl7 16:30 Follow up: Response: No adverse reaction; Pain is decreased jl7 14:27 Drug: Decadron (dexamethasone) 10 mg Route: IM; Site: left deltoid; jl7 16:30 Follow up: Response: No adverse reaction jl7 Medication: 16:29 VIS not applicable for this client. jl7 Outcome: 15:32 Discharge ordered by . [facility] 16:20 Discharged to home ambulatory. jl7 16:20 Condition: stable 16:20 Discharge instructions given to patient, Instructed on discharge instructions, follow up and referral plans. medication usage, Demonstrated understanding of instructions, follow-up care, medications, Prescriptions given X 3. 16:30 Patient left the ED. jl7 Signatures: Dispatcher [employer] EDMS Matthew Vidal PA PA jmm Martinez, Amelia as Leal, Jahala, RN RN jl7
[2022-04-28 18:27] VITALS: BP 150/104; TEMP 97.9; O2SAT 100
== END 2022-04-28 16:30 | disposition home or self-care (01) ==
LOC: ER 12:47
DX: M54.50 Low back pain, unspecified (principal); M25.551 Pain in right hip
CPT/HCPCS: 72100; 72170; 96372; 99283; J1100

== ENCOUNTER 2022-06-29 16:58 | Emergency (ER) | payer BC ==
--- OUTSIDE RECORDS SUMMARY | 2022-06-29 17:03 | XMS REPORT | Continuity of Care Document ---
:1975 Author Organization [facility] t Address [address] [facility] [address] [place] [address] Care Team Providers Name Role Phone Unavailable Unavailable Unavailable Problems This patient has no known problems. Allergies, Adverse Reactions, Alerts This patient has no known allergies or adverse reactions. Medications This patient has no known medications. Procedures This patient has no known procedures. Encounters Start End Encounter Admission Attending Care Care Encounter Source Date/Time Date/Time Type Type Clinicians Facility Department ID 2022-05-16 Outpatient [facility] [id number] Common 13:41:01 [id number] [facility] 2022-04-24 Outpatient [facility] [id number] Common 09:21:03 [id number] [facility] 2021-08-11 Outpatient [facility] [id number] Common 10:04:03 [facility] Results This patient has no known results.
[2022-06-29] MEDS ORDERED: KETOROLAC 30 MG/ML INJ ONE (17:17)
[2022-06-29 17:24] VITALS: BP 148/103; TEMP 98.4; O2SAT 100
--- NOTE | 2022-06-29 19:00 | ER ---
Nurse's Notes [facility] Name: Francis Rico Jr Age: 46 yrs Sex: Male : 1975 Arrival Date: 06/29/2022 Time: 17:02 Bed DX3 Private MD: Diagnosis: Gout, unspecified Presentation: 06/29 17:06 Chief complaint: Worsening left elbow pain x 3 days. Hx of gout, reports pain is hb similar. Coronavirus screen: At this time, the client does not indicate any symptoms associated with coronavirus-19. Ebola Screen: No symptoms or risks identified at this time. Initial Sepsis Screen: Does the patient meet any 2 criteria? No. Patient's initial sepsis screen is negative. Does the patient have a suspected source of infection? No. Patient's initial sepsis screen is negative. Risk Assessment: Do you want to hurt yourself or someone else? Patient reports no desire to harm self or others. Onset of symptoms was June 27, 2022. 17:06 Method Of Arrival: Ambulatory hb 17:06 Acuity: VINH 3 hb Triage Assessment: 17:10 General: Appears in no apparent distress. Behavior is calm, cooperative. Pain: Pain hb currently is 10 out of 10 on a pain scale. Neuro: Level of Consciousness is awake, alert, obeys commands, Oriented to person, place, time, situation. Cardiovascular: Patient's skin is warm and dry. Respiratory: Respiratory effort is even, unlabored, Respiratory pattern is regular, symmetrical. Musculoskeletal: Reports left elbow pain. Historical: - Allergies: 17:10 No Known Allergies; hb - Home Meds: 17:10 Allopurinol Oral [Active]; hb - PMHx: 17:10 Gout; hb - PSHx: 17:10 Appendectomy; hb - Immunization history:: Adult Immunizations up to date. - Social history:: Smoking status: Patient denies any tobacco usage or history of. - Family history:: not pertinent. Screenin:11 [facility] ED Fall Risk Assessment (Adult) Score/Fall Risk Level 0 - 2 = Low Risk hb Oriented to surroundings, Maintained a safe environment. Abuse screen: Denies threats or abuse. Denies injuries from another. Nutritional screening: No deficits noted. Tuberculosis screening: No symptoms or risk factors identified. Assessment: 17:11 General: See triage assessment . hb Vital Signs: 17:06 BP 148 / 103; Pulse 67; Resp 18; Temp 98.4; Pulse Ox 100% on R/A; Weight 95.25 kg; hb Height 5 ft. 6 in. ; Pain 10/10; 17:06 Body Mass Index 33.89 (95.25 kg, 167.64 cm) hb 17:06 Pain Scale: Adult hb ED Course: 17:02 Patient arrived in ED. rg4 17:05 Jesse Todd MD is Attending Physician. rt 17:10 Triage completed. hb 17:10 Arm band placed on. hb 17:11 Patient has correct armband on for positive identification. hb 17:11 No provider procedures requiring assistance completed. Patient did not have IV access hb during this emergency room visit. Administered Medications: 17:20 Drug: Ketorolac IM 30 mg Route: IM; Site: left deltoid; hb Medication: 17:11 VIS not applicable for this client. hb Outcome: 17:14 Discharge ordered by . rt 17:20 Patient left the ED. hb Signatures: Kristie Gusman RN RN Sarah Davenport rg4 Jesse Todd MD MD rt
--- NOTE | 2022-06-29 19:00 | EDPHYS ---
Physician Documentation [facility] Name: Francis Rico Jr Age: 46 yrs Sex: Male : 1975 Arrival Date: 06/29/2022 Time: 17:02 Bed DX3 Private MD: ED Physician Jesse Todd HPI: 06/29 17:15 This 46 yrs old Male presents to ER via Ambulatory with complaints of Elbow Pain. rt 17:15 Patient with history of gout presents to the ED with a left elbow pain going on for rt about 3 days. It is aching nature, nonradiating. Patient states that the symptoms are similar to prior episodes of gout, has not been taking allopurinol or colchicine due to running out. Denies fever, chills, acute complaints. Symptoms are moderate in severity, no other aggravating alleviating factors. Pain is aching nature.. Historical: - Allergies: 17:10 No Known Allergies; hb - Home Meds: 17:10 Allopurinol Oral [Active]; hb - PMHx: 17:10 Gout; hb - PSHx: 17:10 Appendectomy; hb - Immunization history:: Adult Immunizations up to date. - Social history:: Smoking status: Patient denies any tobacco usage or history of. - Family history:: not pertinent. ROS: 17:15 Constitutional: Negative for fever, chills, and weight loss, Cardiovascular: Negative rt for chest pain, palpitations, and edema, Respiratory: Negative for shortness of breath, cough, wheezing, and pleuritic chest pain, Abdomen/GI: Negative for abdominal pain, nausea, vomiting, diarrhea, and constipation, Skin: Negative for injury, rash, and discoloration, Neuro: Negative for headache, weakness, numbness, tingling, and seizure, Psych: Negative for depression, anxiety, suicide ideation, homicidal ideation, and hallucinations. 17:15 MS/extremity: Positive for pain, swelling. Exam: 17:15 Constitutional: This is a well developed, well nourished patient who is awake, alert, rt and in no acute distress. Head/Face: Normocephalic, atraumatic. Chest/axilla: Normal chest wall appearance and motion. Nontender with no deformity. No lesions are appreciated. Cardiovascular: Regular rate and rhythm with a normal S1 and S2. No gallops, murmurs, or rubs. Normal PMI, no JVD. No pulse deficits. Respiratory: Lungs have equal breath sounds bilaterally, clear to auscultation and percussion. No rales, rhonchi or wheezes noted. No increased work of breathing, no retractions or nasal flaring. Skin: Warm, dry with normal turgor. Normal color with no rashes, no lesions, and no evidence of cellulitis. Neuro: Awake and alert, GCS 15, oriented to person, place, time, and situation. Cranial nerves II-XII grossly intact. Motor strength 5/5 in all extremities. Sensory grossly intact. Cerebellar exam normal. Normal gait. Psych: Awake, alert, with orientation to person, place and time. Behavior, mood, and affect are within normal limits. 17:15 Musculoskeletal/extremity: Mild swelling with tenderness to the left elbow, full range of motion. No appreciable warmth at that area, pulses, motor, sensation intact. Vital Signs: 17:06 BP 148 / 103; Pulse 67; Resp 18; Temp 98.4; Pulse Ox 100% on R/A; Weight 95.25 kg; hb Height 5 ft. 6 in. ; Pain 10/10; 17:06 Body Mass Index 33.89 (95.25 kg, 167.64 cm) hb 17:06 Pain Scale: Adult hb MDM: 17:13 Patient medically screened. rt 17:15 Differential diagnosis: Gout, septic arthritis. Data reviewed: vital signs, nurses rt notes. I considered the following discharge prescriptions or medication management in the emergency department Medications were administered in the Emergency Department. See MAR. Test considered but Not performed: Labs: Patient believes that these symptoms are most consistent with a gout, as no constitutional symptoms, physical exam not consistent with septic arthritis, labs including arthrocentesis not indicated.. Care significantly affected by the following chronic conditions: Gout. Counseling: I had a detailed discussion with the patient and/or guardian regarding: the historical points, exam findings, and any diagnostic results supporting the discharge/admit diagnosis, the need for outpatient follow up. ED course: Patient presents to the ED with inconsistent episodes of gout. He is requesting a shot of Toradol. We will refill the patient's allopurinol and colchicine at this time. He will follow-up with a primary care provider. Low suspicion for septic arthritis at this time, x-rays and labs not indicated. This was discussed with the patient was in agreement this plan.. Administered Medications: 17:20 Drug: Ketorolac IM 30 mg Route: IM; Site: left deltoid; hb Disposition Summary: 06/29/22 17:14 Discharge Ordered Location: Home rt Problem: an acute exacerbation rt Symptoms: have improved rt Condition: Stable rt Diagnosis - Gout, unspecified rt Followup: rt - With: Private Physician - When: 2 - 3 days - Reason: Discharge Instructions: - Discharge Summary Sheet rt - Gout rt Forms: - Medication Reconciliation Form rt - Thank You Letter rt - Antibiotic Education rt - Prescription Opioid Use rt Prescriptions: - colchicine 0.6 mg Oral tablet - take 1 tablet by ORAL route 2 times per day; 10 tablet; Refills: 0, Product rt Selection Permitted - Allopurinol 100 mg Oral Tablet - take 1 tablet by ORAL route once daily; 30 tablet; Refills: 0, Product rt Selection Permitted Signatures: Kristie Gusman RN RN Jesse Todd MD MD rt
== END 2022-06-29 17:20 | disposition home or self-care (01) ==
LOC: ER 16:58
DX: M10.9 Gout, unspecified (principal)
CPT/HCPCS: 96372; 99282

== ENCOUNTER 2023-02-07 15:07 | Emergency (ER) | payer BC ==
--- OUTSIDE RECORDS SUMMARY | 2023-02-07 15:10 | XMS REPORT | Continuity of Care Document ---
:1975 Author Organization [facility] t Address [address] [facility] [address] [place] [address] Care Team Providers Name Role Phone Nataly Yao Attending Clinician Unavailable Problems This patient has no known problems. Allergies, Adverse Reactions, Alerts This patient has no known allergies or adverse reactions. Medications This patient has no known medications. Procedures This patient has no known procedures. Encounters Start End Encounter Admission Attending Care Care Encounter Source Date/Time Date/Time Type Type Clinicians Facility Department ID 2022-12-13 [facility] [id number] Common 10:16:00 Nataly [id number] [facility] 2022-12-12 [facility] [id number] Common 14:41:01 [id number] [facility] 2022-05-16 [facility] [id number] Common 13:41:01 [id number] [facility] 2022-04-24 [facility] [id number] Common 09:21:03 [id number] [facility] 2021-08-11 [facility] [id number] Common 10:04:03 [facility] Results This patient has no known results.
[2023-02-07 15:48] LABS: Absolute Lymphocytes (CBC) 0.9 K/uL (0.7-4.9); Hematocrit 40.5 % (39.6-49.0); Lymphocytes % 7.8 % (15.3-44.8); MCV 85.5 fL (80-100); MPV 8.6 fL (7.6-11.3); Platelets 325 thou/uL (152-406); RBC Red Blood Cell Count 4.73 M/uL (4.33-5.43)
[2023-02-07 15:51] LABS: Specific Gravity 1.007 (1.005-1.030); Urine Bacteria <20 /HPF (<20); Urine Bilirubin NEGATIVE (Negative); Urine Blood 3+ (OVER) (Negative); Urine Clarity Extremely Turbid (Clear); Urine Color Light-Brown (Yellow); Urine Glucose NEGATIVE (Negative); Urine Mucus 1+ /HPF (None Seen); Urine Protein 1+ (Negative); Urine RBC >50 /HPF (None Seen); Urine Urobilinogen Normal (Normal); Urine pH 5.5 (5.0-7.0)
[2023-02-07] MEDS ORDERED: NA CHLORIDE 0.9% 1,000 ML ONE (15:51)
[2023-02-07 16:02] LABS: Albumin 3.9 g/dL (3.4-5.0); Bilirubin Total 0.7 mg/dL (0.2-1.0); Potassium 4.2 mEq/L (3.5-5.1)
--- NOTE | 2023-02-07 17:35 | RAD REPORT ---
EXAM DESCRIPTION: CT - Abdomen Pelvis Wo Contrast - 02/07/2023 4:22 pm CLINICAL HISTORY: FLANK PAIN COMPARISON: Stone Protocol dated 06/06/2016; Abdomen Pelvis Wo Contrast dated 05/18/2016; Stone Otto col dated 05/17/2016; CT ABD PELVIS W CONTRAST dated 09/03/2007 TECHNIQUE: Thin cut axial CT imaging of the abdomen and pelvis was performed without IV contrast. Mu ltiplanar reformats were generated and reviewed. All CT scans are performed using dose optimization technique as appropriate and may include automated exposure control or mA/KV adjustment according to patient size. FINDINGS: No suspicious findings in the lung bases. The liver shows a stable 8 millimeter hypoattenuating focus near the dome, suggestive of a small cyst , not well characterized. Spleen, adrenal glands, and pancreas show no suspicious findings. Gallbladd er is contracted limiting evaluation Symmetric renal contour, without suspicious parenchymal findings within limits of noncontrast techniq ue. 1- 2 millimeter calculus at the right vesicoureteral junction. Mild right hydroureteronephrosis. No dilated bowel loops or bowel wall thickening. No free air, free fluid or inflammatory stranding. N o hernia, mass or bulky lymphadenopathy. The urinary bladder is without significant finding. Mild periosteal reaction and osseous lucency along the lateral left ninth rib, suggests a healing non displaced fracture. IMPRESSION: Mild right hydroureteronephrosis. 1-2 millimeter right vesicoureteral junction calculus. Suggestion of healing nondisplaced left ninth rib fracture. The findings were communicated to Marline Mckenzie on 02/07/2023 at 17:29 hours.
--- NOTE | 2023-02-07 17:43 | ER ---
Nurse's Notes [facility] Name: Francis Rico Jr Age: 47 yrs Sex: Male : 1975 Arrival Date: 02/07/2023 Time: 15:07 Bed 7 Private MD: Diagnosis: Ureterolithiasis, kidney stone, right-sided hydronephrosis, flank pain Presentation: 02/07 15:20 Chief complaint: Patient states: lower abdominal cramping onset today. Pt states that cm10 the pain radiates to his groin area. Coronavirus screen: Client denies travel out of the [place] in the last 14 days. Ebola Screen: Patient denies travel to an Ebola-affected area in the 21 days before illness onset. No symptoms or risks identified at this time. Initial Sepsis Screen: Does the patient meet any 2 criteria? No. Patient's initial sepsis screen is negative. Does the patient have a suspected source of infection? No. Patient's initial sepsis screen is negative. Risk Assessment: Do you want to hurt yourself or someone else? Patient reports no desire to harm self or others. Onset of symptoms was February 07, 2023. 15:20 Method Of Arrival: Ambulatory cm10 15:20 Acuity: VINH 3 cm10 Historical: - Allergies: 15:20 Indomethacin; cm10 - PMHx: 15:20 Gout; Hypercholesterolemia; cm10 - PSHx: 15:20 Appendectomy; cm10 - Immunization history:: Adult Immunizations unknown. - Social history:: Smoking status: unknown. Screenin:42 [facility] ED Fall Risk Assessment (Adult) History of falling in the last 3 months, tm6 including since admission No falls in past 3 months (0 pts). Abuse screen: Denies threats or abuse. Denies injuries from another. Nutritional screening: No deficits noted. Tuberculosis screening: No symptoms or risk factors identified. Assessment: 15:42 General: Appears in no apparent distress. Behavior is calm, cooperative, appropriate tm6 for age. Pain: Complains of pain in abdomen and pelvis Quality of pain is described as burning, aching. Neuro: Level of Consciousness is awake, alert, obeys commands, Oriented to person, place, time, situation. Cardiovascular: Capillary refill < 3 seconds Patient's skin is warm and dry. Respiratory: Airway is patent Respiratory effort is even, unlabored, Respiratory pattern is regular, symmetrical. GI: Abdomen is round non-distended, Bowel sounds present X 4 quads. Abd is soft and non tender. : Reports burning with urination, pain in suprapubic area. EENT: No signs and/or symptoms were reported regarding the EENT system. Derm: No signs and/or symptoms reported regarding the dermatologic system. Musculoskeletal: No signs and/or symptoms reported regarding the musculoskeletal system. 16:40 Reassessment: Patient appears in no apparent distress at this time. No changes from tm6 previously documented assessment. 17:42 Reassessment: Patient appears in no apparent distress at this time. Patient and/or tm6 family updated on plan of care and expected duration. Pain level reassessed. Vital Signs: 15:20 BP 154 / 110; Pulse 104; Resp 18; Temp 96.9; Pulse Ox 99% on R/A; cm10 15:41 Weight 97.52 kg; Height 5 ft. 6 in. ; Pain 5/10; tm6 16:41 BP 158 / 100; Pulse 81; Resp 19; Pulse Ox 99% on R/A; tm6 17:41 BP 158 / 100; Pulse 82; Pulse Ox 100% on R/A; tm6 15:41 Body Mass Index 34.70 (97.52 kg, 167.64 cm) tm6 15:41 Pain Scale: Adult tm6 ED Course: 15:11 Patient arrived in ED. mg5 15:13 Marline Mckenzie MD is Attending Physician. sp3 15:14 Ivanna Medina, TAYLER is Primary Nurse. tm6 15:21 Triage completed. cm10 15:21 Arm band placed on Patient placed in an exam room, on a stretcher. cm10 15:42 Bed in low position. Call light in reach. Side rails up X 1. Provided Education on: tm6 medication. Client placed on continuous cardiac and pulse oximetry monitoring. NIBP monitoring applied. Door closed. Noise minimized. Lights dimmed. 15:42 Inserted saline lock: 20 gauge in right antecubital area, using aseptic technique. tm6 16:24 CT Abd/Pelvis - Without Contrast In Process Unspecified. EDMS 17:52 No provider procedures requiring assistance completed. IV discontinued, intact, tm6 bleeding controlled. Administered Medications: 15:40 Drug: NS 0.9% IV 1000 ml IV at 1 bolus Per protocol; 1000 mL bolus Route: IV; Rate: 1 tm6 bolus; Site: right antecubital; 17:51 Drug: Ketorolac IVP 30 mg IVP once Route: IVP; Site: right antecubital; tm6 Medication: 15:42 VIS not applicable for this client. tm6 Outcome: 17:42 Discharge ordered by . sp3 17:52 Discharged to home ambulatory, tm6 17:52 Condition: stable 17:52 Discharge instructions given to patient, family, Instructed on discharge instructions, follow up and referral plans. medication usage, Demonstrated understanding of instructions, follow-up care, medications, Prescriptions given X 1, 17:52 Patient left the ED. tm6 Signatures: Dispatcher [employer] EDMarline Pearce MD MD sp3 Ladonna Linda, RN RN 10 Ysabel Winston mg5 Ivanna Medina RN RN tm6
--- NOTE | 2023-02-07 17:43 | EDPHYS ---
Physician Documentation [facility] Name: Francis Rico Jr Age: 47 yrs Sex: Male : 1975 Arrival Date: 02/07/2023 Time: 15:07 Bed 7 Private MD: ED Physician Marline Mckenzie HPI: 02/07 15:43 This 47 yrs old Male presents to ER via Ambulatory with complaints of Abdominal sp3 Cramping, Urinary Problem. 15:43 47-year-old male with history of gout and hyperlipidemia presents to the ED with sp3 bilateral flank pain and urinary frequency and dysuria for the last 2 days. Patient has multiple prior kidney stones as well as prior UTI episodes. He denies any other symptoms including fever, headache, URI symptoms, chest pain, shortness of breath, anterior abdominal pain, testicular pain, rash, urethral discharge, or any other signs or symptoms on ROS at this time.. Historical: - Allergies: 15:20 Indomethacin; cm10 - PMHx: 15:20 Gout; Hypercholesterolemia; cm10 - PSHx: 15:20 Appendectomy; cm10 - Immunization history:: Adult Immunizations unknown. - Social history:: Smoking status: unknown. ROS: 15:43 Constitutional: Negative for fever, chills, and weight loss, Eyes: Negative for injury, sp3 pain, redness, and discharge, ENT: Negative for injury, pain, and discharge, Neck: Negative for injury, pain, and swelling, Cardiovascular: Negative for chest pain, palpitations, and edema, Respiratory: Negative for shortness of breath, cough, wheezing, and pleuritic chest pain, MS/Extremity: Negative for injury and deformity, Skin: Negative for injury, rash, and discoloration, Neuro: Negative for headache, weakness, numbness, tingling, and seizure, 15:43 All other systems are negative, Exam: 15:43 Constitutional: This is a well developed, well nourished patient who is awake, alert, sp3 and in no acute distress. Head/Face: Normocephalic, atraumatic. Eyes: Pupils equal round and reactive to light, extra-ocular motions intact. Lids and lashes normal. Conjunctiva and sclera are non-icteric and not injected. Cornea within normal limits. Periorbital areas with no swelling, redness, or edema. Neck: Trachea midline, no thyromegaly or masses palpated, and no cervical lymphadenopathy. Supple, full range of motion without nuchal rigidity, or vertebral point tenderness. No Meningismus. Chest/axilla: Normal chest wall appearance and motion. Nontender with no deformity. No lesions are appreciated. Cardiovascular: Regular rate and rhythm with a normal S1 and S2. No gallops, murmurs, or rubs. Normal PMI, no JVD. No pulse deficits. Respiratory: Lungs have equal breath sounds bilaterally, clear to auscultation and percussion. No rales, rhonchi or wheezes noted. No increased work of breathing, no retractions or nasal flaring. Abdomen/GI: Soft, non-tender, with normal bowel sounds. No distension or tympany. No guarding or rebound. No evidence of tenderness throughout. Back: No spinal tenderness. No costovertebral tenderness. Full range of motion. Skin: Warm, dry with normal turgor. Normal color with no rashes, no lesions, and no evidence of cellulitis. Vital Signs: 15:20 BP 154 / 110; Pulse 104; Resp 18; Temp 96.9; Pulse Ox 99% on R/A; cm10 15:41 Weight 97.52 kg; Height 5 ft. 6 in. ; Pain 5/10; tm6 16:41 BP 158 / 100; Pulse 81; Resp 19; Pulse Ox 99% on R/A; tm6 17:41 BP 158 / 100; Pulse 82; Pulse Ox 100% on R/A; tm6 15:41 Body Mass Index 34.70 (97.52 kg, 167.64 cm) tm6 15:41 Pain Scale: Adult tm6 MDM: 15:29 Patient medically screened. sp3 15:44 Data reviewed: vital signs, nurses notes, lab test result(s), radiologic studies. ED sp3 course: 47-year-old male with symptoms and flank pain with prior kidney stones. We will obtain CT scan of the abdomen pelvis stone protocol, urine analysis and general labs. Disposition pending work-up and patient course. Differential includes UTI, pyelonephritis, kidney stone, functional abdominal pain, constipation, among others. Clinically have ruled out vascular pathology including aortic dissection/aneurysm, sepsis, shock, or any other critical pathology at this time.. 17:41 ED course: CT demonstrates 2 mm UVJ stone on the right side with mild hydronephrosis. sp3 Laboratory values within normal values with the exception of creatinine at 1.48. Unknown baseline. No signs of infection noted. Will discharge patient home on NSAIDs and give 1 dose of NSAIDs prior to his discharge.. 02/07 15:31 Order name: CBC with Diff; Complete Time: 16:20 sp3 02/07 15:31 Order name: CMP; Complete Time: 16:20 sp3 02/07 15:31 Order name: Lipase; Complete Time: 16:20 sp3 02/07 15:31 Order name: Urinalysis w/ reflexes; Complete Time: 16:20 sp3 02/07 15:31 Order name: CT Abd/Pelvis - Without Contrast; Complete Time: 17:41 sp3 02/07 15:31 Order name: IV Saline Lock; Complete Time: 15:36 sp3 02/07 15:31 Order name: Labs collected and sent; Complete Time: 15:36 sp3 Administered Medications: 15:40 Drug: NS 0.9% IV 1000 ml IV at 1 bolus Per protocol; 1000 mL bolus Route: IV; Rate: 1 tm6 bolus; Site: right antecubital; 17:51 Drug: Ketorolac IVP 30 mg IVP once Route: IVP; Site: right antecubital; tm6 Disposition Summary: 02/07/23 17:42 Discharge Ordered Notes: Location: Home sp3 Condition: Stable sp3 Diagnosis - Ureterolithiasis, kidney stone, right-sided hydronephrosis, flank pain sp3 Followup: sp3 - With: Private Physician - When: Upon discharge from the Emergency Department - Reason: Continuance of care Discharge Instructions: - Discharge Summary Sheet sp3 - Kidney Stones sp3 Forms: - Medication Reconciliation Form sp3 - Thank You Letter sp3 - Antibiotic Education sp3 - Prescription Opioid Use sp3 - Patient Portal Instructions sp3 - Leadership Thank You Letter sp3 Prescriptions: - Diclofenac Sodium 75 mg Oral Tablet Sustained Release - take 1 tablet ORAL route 2 times per day; 30 tablet; Refills: 0, Product sp3 Selection Permitted Signatures: Dispatcher [employer] Marline Valladares MD MD sp3 Ladonna Linda RN RN cm10 Ivanna Medina RN RN tm6
[2023-02-07] MEDS ORDERED: KETOROLAC 30 MG/ML INJ ONE (17:58)
[2023-02-07 18:00] VITALS: TEMP 96.9
[2023-02-07 18:03] VITALS: BP 158/100
[2023-02-07 18:05] VITALS: O2SAT 100
== END 2023-02-07 17:52 | disposition home or self-care (01) ==
LOC: ER 15:07
DX: N13.2 Hydronephrosis with renal and ureteral calculous obstruction (principal); Z88.8 Allergy status to other drugs, medicaments and biological substances
CPT/HCPCS: 85025; 81001; 36415; 83690; 80053; 74176; 96374; 99284; J7030

== ENCOUNTER 2023-08-16 14:26 | Emergency (ER) | payer BC ==
--- OUTSIDE RECORDS SUMMARY | 2023-08-16 14:29 | XMS REPORT | Continuity of Care Document ---
Author Name Unknown Address [address] [facility] [address] [place] [address] [facility] thconnect Address [address] [facility] [address] [place] [address] Care Team Providers Care Operations Research Engineer Name Role Phone Nataly Yao Attending Clinician Unavail able Payers Payer Name Policy Type Policy Number Effective Date Expirati on Date Source [facility] 6 [id number] [facility] Problems Condition Name Condition Details Condition Category Status Onset Date Resolution Date Last Treatment Date Treating Clinician Comments Source Obesity Obesity (BMI 35.0-39.9 without comorbidit y) Problem [facility] Polyarthra lgia Polyarthra lgia Problem [facility] Chronic kidney disease CKD (chronic kidney disease) Problem [facility] Gout Gout Problem [facility] Seasonal allergic rhinitis Allergic rhinitis, seasonal Problem [facility] Allergies, Adverse Reactions, Alerts Allergy Name Allergy Type Status Severity Reaction(s) Onset Date Inactive Date Treating Clinician Comments Source indometh acin indometh acin Active heart racing, [facility] Social History Social Habit Start Date Stop Date Quantity Comments Source Sex Assigned At [facility] History of Tobacco Use [facility] Smoking Status Start Date Stop Date Source Former Smoker 2023-01-09 00:00:00 2023-01-09 00:00:00 [facility] Medications Ordered Medication Name Filled Medication Name Start Date Stop Date Current Medication? Ordering Clinician Indication Dosage Frequency Signature (SIG) Comments Components Source Phenylephri ne-Bromphen -DM 5-2-10 MG/5ML Phenylephri ne-Bromphen -DM 5-2-10 MG/5ML 2022-04 0-04 00:00: 00 No 5{ml_as _needed } 6xD Phenylephr ine-Bromph en-DM 5-2-10 MG/5ML Kenalog (Triamcinol one) Kenalog (Triamcinol one) 2022-04 0-04 00:00: 00 No 40mg [facility] Phenylephri ne-Bromphen -DM 5-2-10 MG/5ML Phenylephri ne-Bromphen -DM 5-2-10 MG/5ML 2022-04 0-04 00:00: 00 No 5{ml_as _needed } 6xD Phenylephr ine-Bromph en-DM 5-2-10 MG/5ML Kenalog (Triamcinol one) Kenalog (Triamcinol one) 2022-04 0-04 00:00: 00 No 40mg [facility] Phenylephri ne-Bromphen -DM 5-2-10 MG/5ML Phenylephri ne-Bromphen -DM 5-2-10 MG/5ML 2022-04 0-04 00:00: 00 No 5{ml_as _needed } 6xD Phenylephr ine-Bromph en-DM 5-2-10 MG/5ML Kenalog (Triamcinol one) Kenalog (Triamcinol one) 2022-04 0-04 00:00: 00 No 40mg [facility] Phenylephri ne-Bromphen -DM 5-2-10 MG/5ML Phenylephri ne-Bromphen -DM 5-2-10 MG/5ML 2022-04 0-04 00:00: 00 No 5{ml_as _needed } 6xD Phenylephr ine-Bromph en-DM 5-2-10 MG/5ML Kenalog (Triamcinol one) Kenalog (Triamcinol one) 2022-04 0-04 00:00: 00 No 40mg [facility] Phenylephri ne-Bromphen -DM 5-2-10 MG/5ML Phenylephri ne-Bromphen -DM 5-2-10 MG/5ML 2022-04 0-04 00:00: 00 No 5{ml_as _needed } 6xD Phenylephr ine-Bromph en-DM 5-2-10 MG/5ML Kenalog (Triamcinol one) Kenalog (Triamcinol one) 2022-04 0-04 00:00: 00 No 40mg [facility] Lidocaine Lidocaine 0 - 00:00: 00 No 10mg [facility] Kenalog (Triamcinol one) Kenalog (Triamcinol one) 0 - 00:00: 00 No 40mg [facility] Lidocaine Lidocaine 0 - 00:00: 00 No 10mg [facility] Kenalog (Triamcinol one) Kenalog (Triamcinol one) 0 - 00:00: 00 No 40mg [facility] Lidocaine Lidocaine 0 - 00:00: 00 No 10mg [facility] Kenalog (Triamcinol one) Kenalog (Triamcinol one) 0 - 00:00: 00 No 40mg [facility] Lidocaine Lidocaine 0 - 00:00: 00 No 10mg [facility] Kenalog (Triamcinol one) Kenalog (Triamcinol one) 0 - 00:00: 00 No 40mg [facility] Lidocaine Lidocaine 0 - 00:00: 00 No 10mg [facility] Kenalog (Triamcinol one) Kenalog (Triamcinol one) 0 -23 00:00: 00 No 40mg [facility] Meloxicam 10 MG Meloxicam 10 MG No 1{capsu le} QD Meloxicam 10 MG Meloxicam 10 MG Meloxicam 10 MG No 1{capsu le} QD Meloxicam 10 MG Meloxicam 10 MG Meloxicam 10 MG No 1{capsu le} QD Meloxicam 10 MG Meloxicam 10 MG Meloxicam 10 MG No 1{capsu le} QD Meloxicam 10 MG Meloxicam 10 MG Meloxicam 10 MG No 1{capsu le} QD Meloxicam 10 MG Vital Signs Vital Name Observation Time Observation Value Comments S ource height 2022-12-13 11:00:00 65.25 [in_i] Com [facility] weight 2022-12-13 11:00:00 232 [lb_av] Comm on [facility] temperature 2022-12-13 11:00:00 98.7 [degF] Com [facility] bmi 2022-12-13 11:00:00 38.31 kg/m2 Comm on [facility] oximetry 2022-12-13 11:00:00 97 % Commo n [facility] respiratory rate 2022-12-13 11:00:00 16 /min [facility] blood pressure systolic 2022-12-13 11:00:00 126 mm[Hg] [facility] blood pressure diastolic 2022-12-13 11:00:00 80 mm[Hg] [facility] Encounters Start Date/Time End Date/Time Encounter Type Admission Type Attending Clinicians Care Facility Care Department Encounter ID Source 2022-12-13 10:16:00 Outpatient Mildredjose cruz Nataly [facility] [id number] [facility] 2022-12-12 14:41:01 Outpatient [facility] [id number] [facility] 2022-05-16 13:41:01 Outpatient [facility] [id number] [facility] 2022-04-24 09:21:03 Outpatient [facility] [id number] [facility] 2021-08-11 10:04:03 Outpatient [facility] [id number] [facility] 2023-01-09 00:00:00 2023-01-09 00:00:00 OFFICE VISIT NEW PT LEVEL 3 [facility] [id number] [facility] 2023-01-09 00:00:00 2023-01-09 00:00:00 (TEL) [facility] [id number] [facility] 2022-12-14 00:00:00 2022-12-14 00:00:00 (TEL) [facility] [id number] [facility] 2022-12-13 00:00:00 2022-12-13 00:00:00 OFFICE VISIT NEW PT LEVEL 4 [facility] [id number] [facility] 2022-12-13 00:00:00 2022-12-13 00:00:00 (TEL) [facility] [id number] [facility]
--- NOTE | 2023-08-16 15:14 | EDPHYS ---
Physician Documentation [facility] Name: Francis Rico Jr Age: 47 yrs Sex: Male : 1975 Arrival Date: 08/16/2023 Time: 14:26 Bed IW2 Private MD: ED Physician Jean Shelton HPI: 08/15 17:13 This 47 yrs old Male presents to ER via Ambulatory with complaints of Foot Pain. kb 17:13 Pt is a 47 year old male who presents with posterior foot pain that started a week ago kb with redness and has developed a lump in area. States he has a history of gout and believes that is the cause but he is on prednisone, which normally helps, and it hasn't this time. Has appt with needle leader soon, but is supposed to go back to work tonight and cannot walk well due to pain. Denies fever. Historical: - Allergies: 15:06 Indomethacin; hb - Home Meds: 15:06 Allopurinol Oral [Active]; hb - PMHx: 15:06 Gout; Hypercholesterolemia; hb - PSHx: 15:06 Appendectomy; hb - Immunization history:: Adult Immunizations up to date. - Infectious Disease History:: Denies. - Social history:: Smoking status: . ROS: 17:15 Constitutional: As per HPI kb Exam: 17:15 Constitutional: This is a well developed, well nourished patient who is awake, alert, kb and in no acute distress. Head/Face: Normocephalic, atraumatic. ENT: Moist Mucous membranes Cardiovascular: Regular rate Respiratory: Respirations even and unlabored. No increased work of breathing. Talking in full sentences Abdomen/GI: Soft, non-tender. No distention MS/ Extremity: Pulses equal, no cyanosis. Neurovascular intact. Full, normal range of motion. Neuro: Awake and alert, GCS 15, oriented to person, place, time, and situation. Moves all extremities. Normal gait. 17:15 Musculoskeletal/extremity: Extremities: grossly normal except: noted in the left heel: erythema, pain, swelling, tenderness, ROM: intact in all extremities, Circulation is intact in all extremities. Sensation intact. Vital Signs: 15:07 BP 153 / 119; Pulse 98; Resp 16; Temp 98(O); Pulse Ox 98% on R/A; Weight 97.52 kg; hb Height 5 ft. 7 in. ; Pain 9/10; 15:07 Body Mass Index 33.67 (97.52 kg, 170.18 cm) hb 15:07 Pain Scale: Adult hb MDM: 14:31 Patient medically screened. [facility] 17:13 Differential diagnosis: cellulitis, gout, abscess. Data reviewed: vital signs, nurses kb notes. Test considered but Not performed: X-ray: x-ray considered, but pt has no bony tenderness and no injury. Counseling: I had a detailed discussion with the patient and/or guardian regarding the historical points, exam findings, and any diagnostic results supporting the discharge/admit diagnosis, the need for outpatient follow up, a family practitioner, to return to the emergency department if symptoms worsen or persist or if there are any questions or concerns that arise at home. Administered Medications: 15:25 Drug: Ketorolac IM 30 mg IM once Route: IM; Site: right deltoid; hb 15:26 Follow up: Response: Medication administered at discharge. hb 15:25 Drug: Cephalexin PO 500 mg PO once Route: PO; hb 15:26 Follow up: Response: Medication administered at discharge. hb 15:25 Drug: [place] PO 10 mg-325 mg 1 tabs PO once Route: PO; hb 15:26 Follow up: Response: Medication administered at discharge. hb Disposition Summary: 08/16/23 15:14 Discharge Ordered Notes: Location: Home kb Condition: Stable kb Diagnosis - Local infection of the skin and subcutaneous tissue, unspecified kb Followup: kb - With: Emergency Department - When: As needed - Reason: Worsening of condition Followup: kb - With: Private Physician - When: 2 - 3 days - Reason: Recheck today's complaints, Continuance of care, Re-evaluation by your physician Discharge Instructions: - Cellulitis, Adult, [id number] kb - Gout, [id number] kb - Discharge Summary Sheet hb Forms: - Medication Reconciliation Form kb - Antibiotic Education kb - Prescription Opioid Use kb - Patient Portal Instructions kb - Leadership Thank You Letter kb - Work release form Prescriptions: - Cephalexin 500 mg Oral Capsule - take 1 capsule ORAL route every 8 hours for 10 days; 30 capsule; Refills: 0, kb Product Selection Permitted Signatures: Bernie Ga, JUNIOR-C JUNIOR-Jean Solano MD MD cha Baxter, Heather, TAYLER RN hb
--- NOTE | 2023-08-16 15:14 | ER ---
Nurse's Notes [facility] Name: Francis Rico Jr Age: 47 yrs Sex: Male : 1975 Arrival Date: 08/16/2023 Time: 14:26 Bed IW2 Private MD: Diagnosis: Local infection of the skin and subcutaneous tissue, unspecified Presentation: 08/15 15:04 Chief complaint: Severe left foot pain x 1 week. Denies injury. Coronavirus screen: At hb this time, the client does not indicate any symptoms associated with coronavirus-19. Ebola Screen: No symptoms or risks identified at this time. Initial Sepsis Screen: Does the patient meet any 2 criteria? No. Patient's initial sepsis screen is negative. Does the patient have a suspected source of infection? No. Patient's initial sepsis screen is negative. Risk Assessment: Do you want to hurt yourself or someone else? Patient reports no desire to harm self or others. Onset of symptoms was August 10, 2023. 15:04 Method Of Arrival: Ambulatory hb 15:07 Acuity: VINH 4 hb Triage Assessment: 15:08 General: Appears in no apparent distress. Behavior is calm, cooperative. Pain: Pain hb currently is 9 out of 10 on a pain scale. Neuro: Level of Consciousness is awake, alert, obeys commands, Oriented to person, place, time, situation. Cardiovascular: Patient's skin is warm and dry. Respiratory: Respiratory effort is even, unlabored, Respiratory pattern is regular, symmetrical. Derm: Reports severe left foot pain. Historical: - Allergies: 15:06 Indomethacin; hb - Home Meds: 15:06 Allopurinol Oral [Active]; hb - PMHx: 15:06 Gout; Hypercholesterolemia; hb - PSHx: 15:06 Appendectomy; hb - Immunization history:: Adult Immunizations up to date. - Infectious Disease History:: Denies. - Social history:: Smoking status: . Screenin:28 [facility] ED Fall Risk Assessment (Adult) History of falling in the last 3 months, hb including since admission No falls in past 3 months (0 pts) Confusion or Disorientation No (0 pts) Intoxicated or Sedated No (0 pts) Impaired Gait No (0 pts) Mobility Assist Device Used No (0 pt) Altered Elimination No (0 pt) Score/Fall Risk Level 0 - 2 = Low Risk Oriented to surroundings, Maintained a safe environment, Educated pt \T\ family on fall prevention, incl call for assistance when getting out of bed. Abuse screen: Denies threats or abuse. Denies injuries from another. Nutritional screening: No deficits noted. Tuberculosis screening: No symptoms or risk factors identified. Assessment: 15:28 General: See triage assessment . hb Vital Signs: 15:07 BP 153 / 119; Pulse 98; Resp 16; Temp 98(O); Pulse Ox 98% on R/A; Weight 97.52 kg; hb Height 5 ft. 7 in. ; Pain 9/10; 15:07 Body Mass Index 33.67 (97.52 kg, 170.18 cm) hb 15:07 Pain Scale: Adult hb ED Course: 14:29 Patient arrived in ED. mg5 14:32 Bernie Ga FNP-C [facility]. kb 14:32 Jean Shelton MD is Attending Physician. kb 15:07 Arm band placed on. hb 15:08 Triage completed. hb 15:28 Patient has correct armband on for positive identification. Provided Education on: hb medications, follow up. 15:28 No provider procedures requiring assistance completed. Patient did not have IV access hb during this emergency room visit. Administered Medications: 15:25 Drug: Ketorolac IM 30 mg IM once Route: IM; Site: right deltoid; hb 15:26 Follow up: Response: Medication administered at discharge. hb 15:25 Drug: Cephalexin PO 500 mg PO once Route: PO; hb 15:26 Follow up: Response: Medication administered at discharge. hb 15:25 Drug: [place] PO 10 mg-325 mg 1 tabs PO once Route: PO; hb 15:26 Follow up: Response: Medication administered at discharge. hb Medication: 15:28 VIS not applicable for this client. hb Outcome: 15:14 Discharge ordered by MD. kb 15:28 Discharged to home ambulatory, hb 15:28 Condition: stable 15:28 Discharge instructions given to patient, Instructed on discharge instructions, follow up and referral plans. medication usage, Demonstrated understanding of instructions, follow-up care, medications, Prescriptions given X 1, 15:29 Patient left the ED. hb Signatures: Bernie Ga FNP-C FNP-Ckb Baxter, Heather, RN RN [facility] mg5 Corrections: (The following items were deleted from the chart) 15:09 15:07 BP 153 / 119; Pulse 98bpm; Resp 16bpm; Pulse Ox 98% RA; Pain 910, Adult; hb hb 15:13 15:07 BP 153 / 119; Pulse 98bpm; Resp 16bpm; Pulse Ox 98% RA; 97.52 kg; Height 5 ft. 7 hb in.; BMI: 33.6; Pain 910, Adult; hb
[2023-08-16] MEDS ORDERED: HYDROCODONE/APAP 10/325 TAB ONE (15:17)
[2023-08-16] MEDS ORDERED: KETOROLAC 30 MG/ML INJ ONE (15:18)
[2023-08-16] MEDS ORDERED: CEPHALEXIN 250 MG CAP ONE (15:18)
[2023-08-16 15:50] VITALS: BP 153/119; TEMP 98; O2SAT 98
== END 2023-08-16 15:29 | disposition home or self-care (01) ==
LOC: ER 14:26
DX: L08.9 Local infection of the skin and subcutaneous tissue, unspecified (principal); Z88.8 Allergy status to other drugs, medicaments and biological substances
CPT/HCPCS: 96372; 99284